=== PATIENT | female | born 1980 | race Caucasian/White ===

== ENCOUNTER → 2021-07-10 09:28 | Outpatient (BNVA) | payer OTHER, SELFPAY | PROVIDERS: Visit Provider Physician Assistant Surgical | DX: Z13.89 Encounter for screening for other disorder (principal) ==

== ENCOUNTER → 2021-07-12 14:53 | Outpatient (BNVA) | payer OTHER, SELFPAY | PROVIDERS: Visit Provider Physician Assistant Surgical | DX: E66.01 Morbid (severe) obesity due to excess calories (principal); Z68.41 Body mass index [BMI] 40.0-44.9, adult | CPT/HCPCS: 99202 ==

== ENCOUNTER 2021-07-15 09:08 | Outpatient (REF) | payer OTHER, SELFPAY ==
--- NOTE | ~2021-07-15 | XR_ITS ---
EXAMINATION: XR CHEST CLINICAL INFORMATION: Obesity COMPARISON: None TECHNIQUE: 2 views of the chest were obtained. FINDINGS: No significant abnormality is noted involving the heart, lungs, mediastinum, bony thorax or soft tissues. XR/XR chest 2V IMPRESSION: Unremarkable examination.
--- NOTE | 2021-07-15 09:22 | ECG_ITS ---
Test Reason : obesity Blood Pressure : / mmHG Vent. Rate : 061 BPM Atrial Rate : 061 BPM P-R Int : 154 ms QRS Dur : 078 ms QT Int : 420 ms P-R-T Axes : 040 024 024 degrees QTc Int : 422 ms Normal sinus rhythm Normal ECG No previous ECGs available Referred By: Rinku Ramires Electronically Signed By:ANSLEY PAIGE MD
[2021-07-15 09:29] LABS: MANUAL DIFF FLAG NO
[2021-07-15 09:55] LABS: Basophils Percent Auto 0.5 % (0-2); Eosinophils Absolute Auto 0.2 X10*3/uL (0.0-0.4); Eosinophils Percent Auto 2.6 % (0-4); Hematocrit 38.8 % (37.0-47.0); Hemoglobin 12.7 g/dl (12.0-16.0); Imm Gran Abs Auto 0.01 X10*3/uL (0.00-0.03); Imm Gran Pct Auto 0.1 % (0.0-0.4); Lymphocytes Absolute Auto 2.8 X10*3/uL (1.2-4.9); Lymphocytes Percent Auto 37.9 % (20-40); Mean Corpuscular HGB Conc 32.7 g/dl (31.0-35.0); Mean Corpuscular Hemoglobin 29.9 pg (27.0-33.0); Mean Corpuscular Volume 91.3 fL (80.0-98.0); Monocytes Absolute Auto 0.5 X10*3/uL (0.1-1.2); Monocytes Percent Auto 6.3 % (2-11); Neutrophils Absolute Auto 3.9 x10*3/uL (2.0-8.3); Neutrophils Percent Auto 52.6 % (45-73); Platelet Count 230 X10*3/uL (160-400); Red Blood Count 4.25 X10*6/uL (4.20-5.50); Red Cell Distribution Width 12.3 % (11.0-16.0); White Blood Count 7.4 X10*3/uL (4.8-10.8)
[2021-07-15 10:08] LABS: Estimated Average Glucose 114 mg/dL; Hemoglobin A1c % 5.6 %
[2021-07-15 10:22] LABS: Alanine Aminotransferase 23 U/L (0-31); Albumin Level 4.3 g/dL (3.5-5.0); Alkaline Phosphatase 67 U/L (39-117); Anion Gap 11 (12-20); Aspartate Amino Transferase 17 U/L (5-31); Bilirubin Total 1.4 mg/dL (0.0-1.0); Blood Urea Nitrogen 15 mg/dL (9-16); C Reactive Protein 0.28 mg/dL (< or = 0.50); Calcium 9.6 mg/dL (8.4-10.2); Carbon Dioxide 27 mmol/L (22-29); Chloride 107 mmol/L (96-108); Cholesterol 201 mg/dL; Estimated Glomerular Filt Rate > 60; Glucose Random 111 mg/dL (60-115); HDL Cholesterol 55 mg/dL; Iron 63 mcg/dL (30-160); LDL Cholesterol Calculated 131 mg/dl; Percent Iron Saturation 20 % (15-50); Potassium 4.1 mmol/L (3.3-5.1); Sodium 141 mmol/L (135-145); Total Iron Binding Capacity 311 mcg/dL (228-428); Triglycerides 76 mg/dL; Unsaturated Iron Binding 248 ug/dL
[2021-07-15 10:48] LABS: Ferritin 132 ng/mL (10-122); Insulin 21 uU/mL (2-29); TSH reflex Free T4 1.39 uIU/mL (0.32-4.0); Vitamin D 25-OH Total 10.9 ng/mL (>30)
[2021-07-15 10:53] LABS: Folate 11.3 ng/mL (> or = 4.0); Vitamin B12 259 pg/mL (200-900)
[2021-07-16 12:42] LABS: Calcium (PTHI) 9.2 mg/dL (8.6-10.2); PTHI 91 pg/mL (16-77)
[2021-07-16 12:57] LABS: H Pylori Breath Test Negative (Negative)
[2021-07-18 00:03] LABS: Zinc 80 mcg/dL (60-130)
[2021-07-19 13:32] LABS: Vitamin B1 10 nmol/L (8-30)
[2021-07-19 18:41] LABS: Vitamin A 57 mcg/dL (38-98)
== END 2021-07-15 09:09 | disposition home or self-care (01) ==
LOC: HO.XRAY 09:08
PROVIDERS: Visit Provider Physician Assistant Surgical
DX: Z01.818 Encounter for other preprocedural examination (principal); E66.01 Morbid (severe) obesity due to excess calories
CPT/HCPCS: 36415; 71046; 80053; 80061; 82306; 82607; 82728; 82746; 83013; 83036; 83525; 83540; 83970; 84425; 84443; 84590; 84630; 85025; 86140; 93005; 99211

== ENCOUNTER → 2021-07-25 11:00 | Outpatient (BNVA) | payer OTHER, SELFPAY | PROVIDERS: Visit Provider Counselor Mental Health | DX: F34.1 Dysthymic disorder (principal); E66.01 Morbid (severe) obesity due to excess calories | CPT/HCPCS: 90791 ==

== ENCOUNTER → 2021-07-29 08:24 | Outpatient (BNVA) | payer OTHER, SELFPAY | PROVIDERS: Visit Provider Dietitian, Registered | DX: E66.01 Morbid (severe) obesity due to excess calories (principal) | CPT/HCPCS: 97802 ==

== ENCOUNTER → 2021-08-09 08:15 | Outpatient (BNVA) | payer OTHER, SELFPAY | PROVIDERS: Visit Provider Surgery | DX: Z13.89 Encounter for screening for other disorder (principal) ==

== ENCOUNTER → 2021-08-28 10:19 | Outpatient (BNVA) | payer OTHER, SELFPAY | PROVIDERS: Referring Provider Physician Assistant Surgical; Visit Provider Dietitian, Registered | DX: E66.01 Morbid (severe) obesity due to excess calories (principal); Z68.41 Body mass index [BMI] 40.0-44.9, adult | CPT/HCPCS: 97803 ==

== ENCOUNTER 2021-09-04 09:33 | Outpatient (REF) | payer OTHER, SELFPAY ==
--- NOTE | ~2021-09-04 | US_ITS ---
EXAMINATION: US COMPLETE ABDOMEN WITH LIVER ELASTOGRAPHY CLINICAL INFORMATION: Morbid obesity. COMPARISON: None. TECHNIQUE: Real-time imaging of the abdominal viscera. Noninvasive ultrasound liver fibrosis assessment is performed using Shravan ElastPQ point quantification shear wave elastography (2D-SWE) with a C5-2 MHz transducer. Multiple elastography samples are obtained. FINDINGS: PANCREAS: Normal. The visualized pancreatic head and body are normal in appearance. The remainder of the pancreas is obscured from visualization by the overlying bowel gas. ABDOMINAL AORTA: The proximal and mid aortic segments are normal in caliber. The distal segment is not seen. INFERIOR VENA CAVA: Visualized portions are normal. LIVER: The liver demonstrates normal size, contour and increased echogenicity. No focal lesion or intrahepatic biliary duct dilatation. The right lobe measures 16.0 cm in length. The left lobe measures 10.7 cm in length. Portal flow is hepatopedal. Shear wave liver elastography median stiffness is 1.74 m/s (reference: normal median stiffness is 1.3 m/s or less). IQR/median stiffness to assess sampling precision is 0.09 (reference: good quality data set is IQR/median stiffness of 0.15 or less). GALLBLADDER: Normal. The gallbladder is physiologically distended without evidence of stones, sludge, polyps, wall thickening or pericholecystic fluid. COMMON BILE DUCT: Normal in caliber measuring 0.3 cm in diameter. RIGHT KIDNEY: Normal. No hydronephrosis. No renal calculi or focal parenchymal lesions. The kidney measures 12.0 cm in maximum dimension. LEFT KIDNEY: Normal. No hydronephrosis. No renal calculi or focal parenchymal lesions. The kidney measures 10.4 cm in maximum dimension. SPLEEN: Normal. The spleen measures 11.6 cm in maximum dimension. FREE FLUID: None. US/US abdomen comp w elastography IMPRESSION: 1. Mild hepatic steatosis without focal lesion. The rest of the abdominal ultrasound is unremarkable. 2. Liver elastography: Median liver stiffness measures 1.74 m/s corresponding to cACLD ( ruled out). REFERENCE: Society of Radiologists in Ultrasound Liver Stiffness Thresholds (2019): LIVER STIFFNESS THRESHOLDS: *Liver Stiffness equal or less than 1.3 m/s: High probability of being normal. *Liver Stiffness less than 1.7 m/s: In the absence of other known clinical signs, rules out compensated advanced chronic liver disease. *Liver Stiffness 1.7-2.1 m/s: Suggestive of compensated advanced chronic liver disease but need further test for confirmation. *Liver Stiffness over 2.1 m/s: Rules in compensated advanced chronic liver disease. *Liver Stiffness over 2.4 m/s: Suggestive of clinically significant portal hypertension. QUALITY OF DATA SET: *IQR/Median value equal or less than 0.15 implies a quality data set. *IQR/Median value over 0.15 implies a poor quality data set. SIGNIFICANT CHANGE FROM PRIOR EXAM: Significant change if liver stiffness measurement is 10% or greater from prior exam. OTHER CONSIDERATIONS: The stage of liver fibrosis may be overestimated in the setting of acute hepatitis, liver inflammation, elevated liver function tests, hepatic vascular congestion, obstructive cholestasis, non-fasting state, and infiltrative diseases such as amyloidosis and lymphoma. In some patients with NAFLD, the liver stiffness thresholds for compensated advanced chronic liver disease may be lower. In causes other than viral hepatitis and NAFLD, liver stiffness thresholds are not well established.
--- NOTE | ~2021-09-04 | FL_ITS ---
EXAMINATION: XR FLUOROSCOPY UPPER GI WITH AIR CLINICAL INFORMATION: Obesity COMPARISON: None TECHNIQUE: Upper GI was performed using thin and thick barium and effervescent granules. FINDINGS: Esophageal motility is normal. No hernia or reflux is seen. The stomach and duodenum are normal. No fold thickening, mass, ulcer or stricture is seen. FLUOROSCOPY TIME: 0.5 minutes DOSE AREA PRODUCT: 5.3 mireles per centimeter squared. 18 saved fluoroscopic images. FL/FL upper GI w air IMPRESSION: Unremarkable examination.
== END 2021-09-04 09:34 | disposition home or self-care (01) ==
LOC: HO.US 09:33
PROVIDERS: Visit Provider Physician Assistant Surgical
DX: E66.01 Morbid (severe) obesity due to excess calories (principal)
CPT/HCPCS: 74246; 76705; 76981

== ENCOUNTER → 2021-10-02 14:29 | Outpatient (BNVA) | payer OTHER, SELFPAY | PROVIDERS: Referring Provider Physician Assistant Surgical; Visit Provider Dietitian, Registered | DX: E66.9 Obesity, unspecified (principal); Z68.38 Body mass index [BMI] 38.0-38.9, adult | CPT/HCPCS: 97803 ==

== ENCOUNTER 2021-11-01 10:32 | Outpatient (REF) | payer OTHER, SELFPAY ==
[2021-11-01 10:56] LABS: MANUAL DIFF FLAG NO
[2021-11-01 11:17] LABS: Basophils Percent Auto 0.7 % (0-2); Eosinophils Absolute Auto 0.1 X10*3/uL (0.0-0.4); Eosinophils Percent Auto 2.3 % (0-4); Hematocrit 39.6 % (37.0-47.0); Hemoglobin 13.2 g/dl (12.0-16.0); Imm Gran Abs Auto 0.01 X10*3/uL (0.00-0.03); Imm Gran Pct Auto 0.2 % (0.0-0.4); Lymphocytes Absolute Auto 2.6 X10*3/uL (1.2-4.9); Mean Corpuscular HGB Conc 33.3 g/dl (31.0-35.0); Mean Corpuscular Hemoglobin 30.4 pg (27.0-33.0); Mean Corpuscular Volume 91.2 fL (80.0-98.0); Monocytes Absolute Auto 0.3 X10*3/uL (0.1-1.2); Monocytes Percent Auto 4.9 % (2-11); Neutrophils Percent Auto 48.9 % (45-73); Platelet Count 252 X10*3/uL (160-400); Red Blood Count 4.34 X10*6/uL (4.20-5.50); Red Cell Distribution Width 12.2 % (11.0-16.0); White Blood Count 6.1 X10*3/uL (4.8-10.8)
[2021-11-01 11:24] LABS: Prothrombin Time 11.7 SEC (10.0-13.1)
[2021-11-01 11:27] LABS: Partial Thromboplastin Time 39.2 SEC (26.0-36.4)
[2021-11-01 11:31] LABS: Estimated Average Glucose 105 mg/dL; Hemoglobin A1c % 5.3 %
[2021-11-01 12:28] LABS: Alanine Aminotransferase 17 U/L (0-31); Albumin Level 4.2 g/dL (3.5-5.0); Alkaline Phosphatase 63 U/L (39-117); Anion Gap 13 (12-20); Aspartate Amino Transferase 18 U/L (5-31); Bilirubin Total 1.8 mg/dL (0.0-1.0); Blood Urea Nitrogen 14 mg/dL (9-16); C Reactive Protein 0.14 mg/dL (< or = 0.50); Carbon Dioxide 24 mmol/L (22-29); Chloride 107 mmol/L (96-108); Cholesterol 182 mg/dL; Estimated Glomerular Filt Rate > 60; Glucose Random 93 mg/dL (60-115); HDL Cholesterol 56 mg/dL; LDL Cholesterol Calculated 107 mg/dl; Potassium 4.2 mmol/L (3.3-5.1); Sodium 140 mmol/L (135-145); Total Protein 6.9 g/dL (6.5-8.0); Triglycerides 95 mg/dL
[2021-11-01 12:40] LABS: TSH reflex Free T4 1.13 uIU/mL (0.32-4.0)
[2021-11-01 13:10] LABS: Insulin 12 uU/mL (2-29)
== END 2021-11-01 10:33 | disposition home or self-care (01) ==
LOC: HO.LAB 10:32
PROVIDERS: PCP Internal Medicine; Visit Provider Surgery
DX: E66.9 Obesity, unspecified (principal); Z68.37 Body mass index [BMI] 37.0-37.9, adult
CPT/HCPCS: 36415; 80053; 80061; 83036; 83525; 84443; 85025; 85610; 85730; 86140

== ENCOUNTER 2021-11-07 10:22 | Inpatient (IN) | payer OTHER, SELFPAY ==
--- NOTE | 2021-11-02 14:54 | MHC.SHP ---
Pre-Procedural Eval Section A Date of Service: 11/02/21 The patient is an INPATIENT: Yes The History & Physical has been completed within 30 days and I have reviewed it.: Yes Section B Chief Complaint: obesity Relevant Family History (Specify if Yes): No Relevant Social History: None Present Medications: None Medical History: No relevant PMH History of Previous Operations: No relevant previous surgery Allergies: Allergies Allergy/AdvReac Type Severity Reaction Status Date / Time No Known Allergies Allergy Verified 08/09/21 14:05 Review of Systems Sugical H&P ROS: Negative: Constitution, Cardiovascular, Respiratory, Neurological, Psychiatric, Hem-Onc, Allergic/Immunologic, Gastrointestinal, Genitourinary, Musculoskeletal, Integumentary, Endocrine and Eyes/Ears/Nose/Throat Exam Surgical H&P Exam: Normal: HEENT, Normal: Heart, Normal: Lungs, Normal: Extremities, Normal: Abdomen, Normal: Skin and Normal: Neurological Plan Diagnosis/Plan: Unchanged I have reviewed the history and physical and performed a pertinent physical examination on my patient. No changes have occurred unless specified.
[2021-11-04 10:28] VITALS: BMI 38.2
--- NOTE | 2021-11-06 09:07 | HO.ANESPROP2 ---
HPI - Anesthesia Eval Consult details Narrative: 41yo F for Gastrectomy Sleeve,EGD,poss diaphragmatic hernia,poss ventral hernia,poss open, PMFSH Active Problems Active Problems: All Active Problems (Updated 11/04/21 @ 10:26 by Kiley Barahona RN) Morbid obesity (Acute) Diabetes (Acute) Dysthymia (Acute) Obesity (Acute) BMI 38.0-38.9,adult (Acute) BMI 37.0-37.9, adult (Acute) Hx of hysterectomy (Acute) Past Medical History Medical History (Updated 11/09/21 @ 00:02 by Ilan Teixeira) Diabetes Former tobacco use Gestational diabetes Family History Family History Maternal Grandfather Colon cancer Brain tumor Diabetes Maternal Aunt Diabetes Surgical History Surgical History Hx of arthroscopic knee surgery Hx of hand surgery Hx of hysterectomy Hx of tubal ligation Social History Social History Household Members Other:: two adult children, one minor child 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 at home: Yes (minor child) Do you presently have visiting nurse or other home services: No Alcohol intake: current Alcohol intake frequency: does not drink Patient Tobacco Use Status: Former Tobacco user Quit Date: 2019 Tobacco use type: Cigarette service: No Current occupational status: employed Meds Allergies Allergy/AdvReac Type Severity Reaction Status Date / Time No Known Allergies Allergy Verified 11/12/21 15:49 Exam Exam Date and Time: November 06, 2021 0907 Height,Weight and Vital Signs: Height 5 ft Weight 88.904 kg Pertinent Lab Results Pertinent Lab Results: Laboratory Tests 11/01/21 10:49 Blood Type O Positive Antibody Screen NEGATIVE Laboratory Tests 11/01/21 11/01/21 10:54 10:54 WBC 6.1 Hgb 13.2 Hct 39.6 Plt Count 252 Sodium 140 Potassium 4.2 Chloride 107 Carbon Dioxide 24 BUN 14 Creatinine 0.74 Narrative Narrative: EKG 07/2021 Vent. Rate : 061 BPM ? ? Atrial Rate : 061 BPM ?? P-R Int : 154 ms? QRS Dur : 078 ms ? ? QT Int : 420 ms ? ? ? P-R-T Axes : 040 024 024 degrees ?? QTc Int : 422 ms ? Normal sinus rhythm Normal ECG No previous ECGs available
[2021-11-06 14:12] LABS: COVID-19 Test Negative (Negative); IDNOW Serial# 16C4AD1C
[2021-11-07] VITALS (9 sets, daily range): BP systolic 109–143; BP diastolic 55–99; PULSE 75–102; RESP 16–19; TEMP 36.4–37.1; O2SAT 97–100
--- NOTE | 2021-11-07 10:26 | PHA.MEDREC ---
Pharmacy Consult ? Medication Reconciliation Pharmacy has REVIEWED the medication reconciliation by Andreas.
[2021-11-07] MEDS: Lactated Ringers 1,000 ML 100 ML IVCONT (11:07)
[2021-11-07] MEDS: Lactated Ringers 1,000 ML 999 ML IV (11:07)
--- NOTE | 2021-11-07 12:29 | HO.ANESPROP2 ---
[facility] Active Problems Active Problems: All Active Problems (Updated 11/04/21 @ 10:26 by Kiley Barahona RN) Morbid obesity (Acute) Diabetes (Acute) Dysthymia (Acute) Obesity (Acute) BMI 38.0-38.9,adult (Acute) BMI 37.0-37.9, adult (Acute) Hx of hysterectomy (Acute) Past Medical History Medical History (Updated 11/04/21 @ 10:26 by Kiley Barahona RN) Former tobacco use Gestational diabetes Family History Family History Maternal Grandfather Colon cancer Brain tumor Diabetes Maternal Aunt Diabetes Family history of problems with anesthesia: No Surgical History Surgical History (Updated 11/04/21 @ 10:26 by Kiley Barahona RN) Hx of arthroscopic knee surgery Hx of hand surgery Hx of tubal ligation History of Problems with Anesthesia: No Social History Social History Household Members Other:: two adult children, one minor child Are you a primary child care lead teacher to a significant other at home: Yes (minor child) Do you presently have visiting nurse or other home services: No Alcohol intake: current Alcohol intake frequency: does not drink Patient Tobacco Use Status: Former Tobacco user Quit Date: 2019 Tobacco use type: Cigarette Use of substances other than those prescribed or required for medical reasons: No Have you been hit, kicked, punched, or otherwise hurt by someone within the past year? If so, by whom?: No Are you DNR?: No Advance Directives: No Advance Directives Information Provided: Yes (brochure given) Advance Directives on File: No Recently lost weight without trying: No Eating poorly because of decreased appetite: No Nutrition Risks: No Nutritional Risk Patient : No FDLMP: 10/31/21 : No Poor oral hygiene: No Meds Allergies Allergy/AdvReac Type Severity Reaction Status Date / Time No Known Allergies Allergy Verified 08/09/21 14:05 Active Medications: Current Medications Lactated Ringer's (Lr) 1,000 mls @ 999 mls/hr IV .Q1H1M DAYANARA Stop: 11/07/21 12:30 Last Admin: 11/07/21 11:07 Dose: 999 mls/hr Lactated Ringer's (Lr) 1,000 mls @ 100 mls/hr IVCONT .Q10H DAYANARA Last Admin: 11/07/21 11:07 Dose: 100 mls/hr Exam Exam Date and Time: November 07, 2021 1229 Height,Weight and Vital Signs: Height 5 ft Weight 88.904 kg Last Vital Signs Temp 98.7 F 11/07/21 10:58 Pulse 102 H 11/07/21 10:58 Resp 19 11/07/21 10:58 BP 143/99 H 11/07/21 10:58 Pulse Ox 97 11/07/21 10:58 O2 Del Method 11/07/21 10:58 Pertinent Lab Results Pertinent Lab Results: Laboratory Tests 11/01/21 11/06/21 10:49 13:39 COVID-19 (COCO) Negative COVID-19 Clin Com See Note Blood Type O Positive Antibody Screen NEGATIVE Airway Mallampati Class: III TM Dist: >3cm Neck ROM: Full Assessment and Plan Assessment Anesthesia Assessment: Anesthesia Plan Discussed and Chart Reviewed Final Anesthetic Review Family History of Problems with Anesthesia: No History of Problems with Anesthesia: No NPO: Yes ASA Class: III Final Preanesthetic Review: No Changes in Pt Med Stat, Meds/Allgs Chart Reviewed, Consent Obtained/Reviewed and Anes Risks/Benef Reviewed Patient Risk: Intermediate Procedure Risk: Intermediate Anesthetic Plan Anesthetic Plan: GA Disposition: Standard PACU
--- NOTE | 2021-11-07 12:56 | PM.OP ---
Brief Operative Note Date of Service: 11/07/21 Pre-op diagnosis: Severe obesity with comorbidities (see below) Post-op diagnosis: same Procedure: INITIAL PATIENT BMI ON PRESENTATION AT OUR OFFICE: 41.2 kg/m2 LAST BMI BEFORE SURGERY: 37 kg/m2 COMORBIDITIES: liver fibrosis ?The patient presented to the Weight Management Program with significant obesity that was negatively impacting the patient's comorbidities as listed above.? The program is a phased program with a special focus on preoperative medical weight management to promote substantial weight loss and prepare the patients for the second phase of the program: bariatric surgery. The patient participated in an intensive weekly lifestyle ?intervention and exercise program during which the patient ?has lost between the initial office visit and the last preoperative visit 15.4lbs, or 7.18% of initial actual body weight. It was deemed appropriate for the patient to now have bariatric surgery. In light of the current Covid-19 pandemic and the well documented strong association of obesity and increased risk of worse outcomes if infected with Covid-19 (REFERENCES:https://pubmed.ncbi.nlm.nih.gov/96556833/,?https://pubmed.ncbi.nlm.nih.gov/31313337/), any delay in undergoing bariatric surgery may lead to the patient's worsening health condition and increased?risk of more severe Covid-19 disease if infected. In addition a recent?study from [facility] published in [facility] on 03/04/2021 ([email or web address]) found that, among patients with obesity, substantial weight loss achieved with surgery was associated with improved outcomes of COVID-19 infection. The findings suggest that obesity can be a modifiable risk factor for the severity of COVID-19 infection. In addition, the patient met the BMI-criteria for bariatric surgery based on the BMI on initial presentation. The patient should not be penalized for achieving such weight loss because ?it is not sustainable long-term without surgical intervention and it was achieved in preparation for bariatric surgery ?under my direction and based on my published research ([email or web address]).[email or web address] and?[email or web address]/pdf) ?that a 10% preoperative weight loss improves long-term weight loss after surgery and reduces perioperative complications.? Insurance carriers such as [facility] have endorsed my recommendations ?and have included in their policies criteria to include a 10% preoperative weight loss requirement. PROCEDURE: Esophago-gastroscopy, laparoscopic repair of incarcerated diaphragmatic hernia, laparoscopic lysis of adhesions, laparoscopic sleeve gastrectomy and laparoscopic gastropexy INDICATIONS: This is a 41 year-old female who was electively scheduled for laparoscopic, possibly open sleeve gastrectomy. The risks and complications of the procedure were discussed with the patient in advance, particularly the possibility of ; pulmonary embolism; staple line leak; bleeding; GERD; cardiac, pulmonary, or renal complications; as well as long-term problems such as insufficient weight loss, vitamin deficiency, strictures, or ulcers. The patient understood all the risks, and was in agreement to proceed with surgery. DESCRIPTION OF PROCEDURE: After informed consent was obtained from the patient, the patient was given preoperative antibiotics, and was transferred to the operating room. After successful induction of general anesthesia, pneumatic compression devices were placed on both lower extremities. An upper endoscopy was performed next. The oropharynx and esophagus appeared to be within normal limits. There was no diaphragmatic hernia present consistent with the findings of the preoperative upper GI. The stomach was entered. Then after all fluid and air were suctioned and the stomach was fully decompressed, the scope was withdrawn and secured in the mid esophagus. The patient was then prepped and draped in the usual sterile manner, and abdominal access was established at the right upper quadrant with the Gasper technique. A 12 mm blunt port was inserted, and the abdomen was insufflated with CO2 to a pressure of 15 mmHg. Under direct visualization, additional ports were placed, specifically two 5 mm Versi-step ports to the left upper quadrant, and a 5 mm Versi-Step port to the right upper quadrant. 1% lidocaine plain was used to infiltrate all port sites as well as all fascia defects. Following that, the patient was placed in a steep reverse Trendelenburg position. An additional 5 mm port was placed to the right flank for the Mediflex retractor that was used to retract the left lobe of the liver. The gastro-esophageal fat pad was opened with the ultrasonic device (Thunderbeat, Olympus) and the anterior esophagus and hiatus were exposed. The angle of His was opened with the ultrasonic device the fundus of the stomach from any diaphragmatic and splenic attachments. I then opened the gastrocolic ligament between the transverse colon and the greater curvature of the stomach with the ultrasonic device to enter the lesser sac and facilitate the ligation of the short gastric vessels. I started at a mid-point along the greater curvature and using the Thunderbeat, all short gastric vessels were divided all the way to the angle of His until the left zaira was completely dissected at its entirety. I then divided the gastro-colic ligament distally to a distance of about 3-4 cm proximal to the pylorus. The stomach was then divided transversely with one Endo DUSTY-45 purple, two DUSTY-45 orange loads and two DUSTY-60 articulating orange loads using the AEON stapler and loads. Every effort was made that the gastric sleeve had a tubular shape and an even caliber throughout. Once the sleeve resection was completed, the staple line of the gastric sleeve was reinforced with Hemoclips. The resected stomach was retrieved without difficulty from the Gasper port. A gastropexy was then performed in order to prevent postoperative GERD and partial gastric volvulus. Several interrupted 2.0 Surgidac sutures were placed between the sleeve's staple line and the previously divided greater omentum and gastro-colic ligament using the Endo-Stitch device. ?An upper endoscopy was performed. There was no narrowing at the GE junction. The scope was easily advanced all the way to the pylorus which was clearly visualized. There was no narrowing anywhere and the sleeve's caliber was even throughout. The sleeve's staple line was inspected and there was no evidence of ischemia, bleeding or dehiscence. At that point the gastroscope was withdrawn from the patient?s mouth while we were decompressing the bowel and the stomach from any remaining air. I looked into the lesser sac to see how the sleeve was situating and it was situating well. There was no bleeding from the staple line, spleen, or short gastric vessels. The Mediflex retractor was removed, and the undersurface of the liver was inspected and there was no bleeding. The patient was placed in supine position. I closed the fascial defect of the 12 mm port site with a figure of eight #1 Polysorb suture. Then 40cc of Ropivacaine plain with 10 mg of Dexamethasone were used to infiltrate the fascial closure as well as all skin incisions. A total of ml of Zynrelef was applied in the Gasper wound. At this point, the abdomen was deflated, all ports were removed under direct vision, and no bleeding was noted from any of the port sites. The skin incisions were irrigated with saline and were closed with 4-0 absorbable monofilament sutures. Steri-Strips and OpSites were used to cover all incisions. The patient was extubated and was transferred in stable condition to the recovery room for further care. I was present and performed all riggs parts of the procedure. Mr. Ramires was the patient care nursing assistant. There were no residents to assist with this case. Je Gonzalez MD, PhD, FACS Surgeon: Malachi Gonzalez MD Anesthesia: GETA, local and other (TAP block and 7ml of Zynrelef) Was an Supervisor Sanding used for this Procedure?: No Supervisor Sanding: Rinku Ramires Estimated blood loss (mL): 10 IV fluids (mL): 3,000 Urine output (mL): 0 (No Steele to record) Pathology: other (Stomach) Condition: stable Disposition: PACU
--- NOTE | 2021-11-07 12:58 | PM.PNGS ---
Subjective Subjective Date of Service: 11/07/21 Interval history: Feels well. Mild incisional pain. She is tolerating phase 1 bariatric diet Physical Exam Vital Signs: Vital Signs: Last Vital Signs Temp 98.7 F 11/07/21 10:58 Pulse 102 H 11/07/21 10:58 Resp 19 11/07/21 10:58 BP 143/99 H 11/07/21 10:58 Pulse Ox 97 11/07/21 10:58 O2 Del Method 11/07/21 10:58 BMI result Body Mass Index 38.2 GI: Inspection: Yes normal to inspection, Yes incision (clean, dry and intact) and Yes obesity Extrem: Right lower extremity: normal to inspection (no calf tenderness ) Left lower extremity: normal to inspection (no calf tenderness) Objective Data Active Medications Hydromorphone HCl (Hydromorphone Hcl 0.5 Mg/0.5 Ml Syringe) 0.5 mg IVPUSH Q5M PRN; Protocol PRN Reason: Pain, Severe (Pain Scale 7-10) Lactated Ringer's (Lr) 1,000 mls @ 100 mls/hr IVCONT .Q10H DAYANARA Last Admin: 11/07/21 11:07 Dose: 100 mls/hr Documented By: JOHN Promethazine HCl 12.5 mg/ (Sodium Chloride) 50.5 mls @ 202 mls/hr IV ONCE PRN PRN Reason: Nausea and Vomiting Ondansetron HCl (Ondansetron Hcl 4 Mg/2 Ml Vial) 4 mg IVPUSH ONCE PRN PRN Reason: Nausea and Vomiting Labs CBC & Chem 7: 11/07/21 15:59 11/07/21 15:59 Labs: Laboratory Results - last 24 hr 11/06/21 13:39 COVID-19 (COCO) Negative COVID-19 Clin Com See Note Progress Note: A&P Assessment and plan (1) Obesity: Status: Acute Assessment and Plan: s/p laparoscopic sleeve gastrectomy and gastropexy Doing well Will check am labs and if OK the patient will be discharged home (2) BMI 37.0-37.9, adult: Status: Acute (3) Liver fibrosis: Status: Acute (4) S/P laparoscopic sleeve gastrectomy: Status: Acute Time Spent With Patient Time: Total time spent is greater than 50% in coordination of care (as documented) at patient's floor/unit and/or counseling patient: Quality Stroke Does the patient have a stroke diagnosis?: No VTE Prior VTE?: No VTE Risk Level:: Surgical - moderate VTE Device Contraindication: N/A - Device Ordered VTE Drug Contraindication: Treatment Not Indicated
--- NOTE | 2021-11-07 15:31 | PM.DS ---
DS: Providers Provider Date of Service: 11/08/21 Date of admission: 11/07/21 10:22 Primary care physician: John Joyce MD DS: Diagnosis Discharge Diagnosis (1) Obesity: Status: Acute (2) BMI 37.0-37.9, adult: Status: Acute (3) Liver fibrosis: Status: Acute DS: Summary Hospital Course Hospital Course: ADMITTING DIAGNOSIS: obesity ? DISCHARGE DIAGNOSIS: same, s/p laparoscopic sleeve gastrectomy ? PAST SURGICAL HISTORY: hysterectomy, hand surgery ? PROCEDURE: upper endoscopy, laparoscopic sleeve gastrectomy ? DISCHARGE SUMMARY: ? History of Present Illness: ? The patient is a?41 year-old woman with a BMI of?41.1 kg/m2 and associated co-morbidities as described above. The patient had extensive work-up,lost?15.4 lbs preoperatively and was electively scheduled for laparoscopic, possible open sleeve gastrectomy and gastropexy. Risks and complications of the surgery were discussed with the patient in advance, particularly the possibility of , pulmonary embolism, anastomotic leak, bleeding, bowel injury, GERD, cardiac, renal or pulmonary complications. The patient understood all the risks and was in agreement with the surgical plan. ? Hospital Course: ? The patient underwent an uneventful laparoscopic sleeve gastrectomy with gastropexy on the day of admission. Postoperatively, the patient was transferred to the surgical floor. The patient received IV Acetaminophen and IV dilaudid for pain control. Patient was started on bariatric phase 1 diet POD #0. On postoperative day one, the patient was feeling well without nausea, vomiting, fevers, or tachycardia. The patient had some mild incisional pain and the abdomen was soft. ? On the morning of postoperative day one, the patient was continued on 1 ounce of water or ice every half hour. During the day, the patient did fairly well, having some incisional pain, but able to ambulate adequately and to tolerate liquids well. ? Since the patient is doing well, we decided that the patient was ready to be discharged. The patient was given instructions to follow-up with me next week and to call my office for any fever over 101, persistent abdominal pain, nausea, vomiting, GERD, symptoms of DVT such as calf tenderness, or leg swelling, or pulmonary embolism such as chest pain or shortness of breath. The patient was also instructed to drink 40-60 ounces of liquids per day using the 1-ounce cups. The patient had been given prescriptions for Tylenol for pain, Zofran prn for nausea, and pantoprazole and carafate previously. The patient was encouraged to ambulate and use the incentive spirometer. The patient was allowed to shower, but no baths, and encouraged to stay active at home. All of these instructions were given to the patient personally. All questions were answered and the patient understood all instructions, the instructions were also given to the patient in print. Time Spent with Patient Time attestation: Total time spent providing and/or coordinating discharge services: Discharge coordination time: Less than 30 minutes Quality: Safe Use of Opioids Does Pt have an Active Cancer Diagnosis on the Problem List?: No Quality: Stroke Does the patient have a stroke diagnosis?: No Physical Exam Vital Signs: Vital Signs: Last Vital Signs Temp 98.7 F 11/07/21 10:58 Pulse 102 H 11/07/21 10:58 Resp 19 11/07/21 10:58 BP 143/99 H 11/07/21 10:58 Pulse Ox 97 11/07/21 10:58 O2 Del Method 11/07/21 10:58 BMI result Body Mass Index 38.2 DS: Data Data Completed and Pending Pending studies at discharge: Pending at discharge 11/07/21 14:59 Surgical [PTH] Routine Discharge Plan Discharge Patient Disposition: Home, Self-Care Discharge Diagnosis: s/p laparoscopic sleeve gastrectomy Referrals: John Joyce MD [Primary Care Provider] - 1 Week Discharge Medications: Continued pantoprazole 40 mg tablet,delayed release (DR/EC) 40 mg PO DAILY Qty: 30 2RF sucralfate 100 mg/mL suspension 10 ml PO BID Qty: 400 2RF Rx Instructions: post op meds ondansetron HCl 4 mg tablet 4 mg PO Q12H Qty: 20 0RF Rx Instructions: post op meds Discontinued cholecalciferol (vitamin D3) 125 mcg (5,000 unit) capsule 125 mcg PO DAILY Qty: 30 3RF mecobalamin (vitamin B12) 1,000 mcg tablet,disintegrating 1,000 mcg sublingual DAILY Qty: 30 2RF Rx Instructions: place tablet under tongue and allow to dissolve for at least30 secs before swallowing Activity on Discharge: No heavy lifting Stand Alone Forms: Patient Portal Discharge page Care Plan Goals: weight loss Health Concerns: obesity Plan of Treatment: No tub baths, sex or returning to work until discussed at first post op appointment. No exercise, alcohol, tobacco or illegal drug use. Continue to use incentive spirometer hourly while awake. Walk in home for 5- 10 minutes every 2 hours during the first week. Follow all instructions in the bariatric handbook and call with any questions.Discharge Instructions 1. Please call your doctor or come back to the emergency room should any new symptoms arise. 2. You will receive a courtesy call from [facility] 24-48 hours after discharge. 3. Activity: abstain from alcohol, practice limited stair climbing, no bending, no driving, no exercise, no illicit substances, no lifting, no sex, no tub bath, no work. 4. Diet: continue as discussed with Dr. Gonzalez. 5. Dressing Change/Wound Care: Your incision is covered by clear bandages and guaze underneath. If the area is tender, you may apply an ice pack for short intervals (no more than 20 minutes on, followed by at least 20 minutes off). Do not apply heat. Do not use creams, lotions, or topical antibiotics unless instructed to do so by your surgeon. These can cause infection or allergic reaction. 6. Call your doctor if: - Your temperature exceeds 101.5 F - You experience excessive pain or swelling - You have an unexpected reaction to medication - You have excessive bleeding - You experience continued vomiting/nausea - Your incision begins to separate - Your incision shows signs of infection such as increased redness, swelling, excessive pain, heat, or drainage (light blood or clear fluid is normal) 7. General instructions: No lifting greater than 5 lbs for the next 4 weeks[address] driving within 24 hours of taking narcotic pain medications. If you do not move your bowels in the next 2 days, please take milk of magnesia over the counter. Please follow the post op diet and do not advance your diet until you are seen in the office in about 2 weeks. Please walk around your home every hour or two to prevent blood clots from forming in your legs. You do not need to wake from sleeping to walk. Please sleep in a bed or couch to prevent kinking at the hips and knees. Please take your incentive spirometer (your lung dog catcher) home with you and use it for the next few days to prevent pneumonias. You may shower, no hot tubs, baths or swimming pools. Please call the office with any questions or concerns such as increasing abdominal pain, fever, chills, shortness of breath, chest pain, leg pain or swelling, or redness or drainage from your incisions. Please stay on stage 3 diet which includes sugar free clear liquids such as ice pops and jello and broth and crystal light. Avoid all carbonation. Please drink 3 protein shakes with at least 25-30 grams of protein daily or 3 of the Celebrate 4:1 shakes which can be purchased in our office. The Celebrate shakes have all of the bariatric vitamins you need if you consume these shakes. If you are drinking other protein shakes, you will need to purchase the Celebrate multivitamins and calcium that we provide in the office (they will provide all the vitamins you need). Please make sure you are consuming at least 40-60 ounces of water in addition to your 3 protein shakes daily. Do not hesitate to contact the office with any questions at . The patient's medical history has been reviewed and they are considered low risk for post op DVT and therefore DVT prophylaxis is not considered necessary. Travel after surgery was reviewed. The patient has not disclosed any travel plans during the first 30 days after surgery and they have been advised that within the first 30 days after surgery any bus, plane, train or car travel over 2 hours in duration is contraindicated due to the possibility of developing blood clots from immobility. Any travel, needs to include periods of ambulation of 10 minutes in duration every 2 hours.? The patient was instructed to discuss any plans for travel during this period with their bariatric surgeon. Assessment: stable, s/p laparoscopic sleeve gastrectomy
[2021-11-07] MEDS: Lactated Ringers 1,000 ML 125 ML IVCONT ×2 (15:45→22:46)
[2021-11-07 16:07] LABS: Hematocrit 37.6 % (37.0-47.0); Hemoglobin 12.7 g/dl (12.0-16.0)
[2021-11-07 16:18] LABS: Anion Gap 19 (12-20); Blood Urea Nitrogen 9 mg/dL (9-16); Calcium 8.2 mg/dL (8.4-10.2); Carbon Dioxide 18 mmol/L (22-29); Chloride 104 mmol/L (96-108); Creatinine Clr Calc Pharmacy 90.3; Estimated Glomerular Filt Rate > 60; Glucose Random 77 mg/dL (60-115); Potassium 4.1 mmol/L (3.3-5.1); Sodium 137 mmol/L (135-145)
[2021-11-07] MEDS: ceFAZolin Sodium/Dextrose,Iso 2 GM/50 ML PIGGYBACK IV (18:27)
[2021-11-07] MEDS: Famotidine/PF 20 MG/2 ML VIAL IVPUSH (19:25)
[2021-11-07] MEDS: 0.9 % Sodium Chloride Flush 3 ML SYRINGE IVFLUSH (19:38)
[2021-11-08] MEDS: ondansetron HCL 4 MG/2 ML VIAL IVPUSH ×2 (01:03→10:23)
[2021-11-08 03:49] VITALS: BP 130/65; PULSE 76; RESP 18; TEMP 36.7; O2SAT 98
[2021-11-08 06:09] LABS: MANUAL DIFF FLAG NO
[2021-11-08] MEDS: Lactated Ringers 1,000 ML 125 ML IVCONT (06:14)
[2021-11-08 06:16] LABS: Hematocrit 38.6 % (37.0-47.0); Hemoglobin 13.1 g/dl (12.0-16.0); Imm Gran Abs Auto 0.04 X10*3/uL (0.00-0.03); Imm Gran Pct Auto 0.4 % (0.0-0.4); Lymphocytes Absolute Auto 1.2 X10*3/uL (1.2-4.9); Lymphocytes Percent Auto 13.6 % (20-40); Mean Corpuscular HGB Conc 33.9 g/dl (31.0-35.0); Mean Corpuscular Hemoglobin 30.3 pg (27.0-33.0); Mean Corpuscular Volume 89.4 fL (80.0-98.0); Mean Platelet Volume 10.7 fL (9.4-12.3); Monocytes Absolute Auto 0.3 X10*3/uL (0.1-1.2); Monocytes Percent Auto 3.1 % (2-11); Neutrophils Absolute Auto 7.4 x10*3/uL (2.0-8.3); Neutrophils Percent Auto 82.9 % (45-73); Platelet Count 240 X10*3/uL (160-400); Red Blood Count 4.32 X10*6/uL (4.20-5.50); Red Cell Distribution Width 11.9 % (11.0-16.0)
[2021-11-08 07:11] LABS: Anion Gap 20 (12-20); Blood Urea Nitrogen 6 mg/dL (9-16); Calcium 8.8 mg/dL (8.4-10.2); Carbon Dioxide 18 mmol/L (22-29); Chloride 103 mmol/L (96-108); Creatinine Clr Calc Pharmacy 94.9; Estimated Glomerular Filt Rate > 60; Glucose Random 103 mg/dL (60-115); Potassium 4.5 mmol/L (3.3-5.1); Sodium 136 mmol/L (135-145)
[2021-11-08 07:39] VITALS: BP 110/64; PULSE 66; RESP 18; TEMP 36.5; O2SAT 100
--- NOTE | 2021-11-08 08:14 | MHC.CM.PN ---
PATIENT LIVES WITH FAMILY INDEPENDENT AT HOME AND COMMUNITY. EMPLOYED NO DME OR HOME SERVICES HCP- EDUCATED, DECLINED AT THIS TIME PCP: ERICA DANIEL PATIENT WILL ARRANGE TRANSPORTATION D/C PLAN: HOME SELF-CARE
--- NOTE | 2021-11-08 08:44 | HO.POSTANES ---
Post Anesthesia Evaluation Post Anesthesia Evaluation Vital Signs: Vital Signs Temp Pulse Resp BP Pulse Ox O2 Del Method 11/08/21 07:39 97.7 F 66 18 110/64 100 Room Air 11/08/21 03:49 98.1 F 76 18 130/65 98 Room Air 11/07/21 23:48 98.1 F 75 18 114/62 97 Room Air Anesthesia: General Endotracheal-GETA Mental Status: Awake Pain Control: Satisfactory Nausea/Vomiting: None Hydration: Adequate Anesthesia-Related Issues: No Anes. Related Issues
--- NOTE | 2021-11-08 10:09 | MHC.CM.PN ---
PATIENT IS MEDICALLY CLEARED FOR DISCHARGE TODAY; DISCHARGE DISPOSITION IS HOME SELF-CARE. PATIENT TO ARRANGE TRANSPORTATION.
[2021-11-08] MEDS: Famotidine/PF 20 MG/2 ML VIAL IVPUSH (10:23)
== END 2021-11-08 14:03 | disposition home or self-care (01) | DRG 403 ==
LOC: HO.SSSA 15:34 → HO.S3 15:56
PROVIDERS: Physician Assistant Surgical; Admitting Provider Surgery; PCP Internal Medicine; Visit Provider Surgery
PROC: 0DB64Z3 Excision of Stomach, Percutaneous Endoscopic Approach, Vertical (ICD-10-PCS; CPT 43845; principal; 2021-11-07 13:00)
DX: E66.01 Morbid (severe) obesity due to excess calories (principal); K74.00 Hepatic fibrosis, unspecified; E11.9 Type 2 diabetes mellitus without complications; Z20.822 Contact with and (suspected) exposure to COVID-19; Z90.710 Acquired absence of both cervix and uterus; Z98.51 Tubal ligation status; Z87.891 Personal history of nicotine dependence; Z79.899 Other long term (current) drug therapy
CPT/HCPCS: 36415; 80048; 85014; 85018; 85025; 86850; 86900; 86901; 87635; 88307; 88342; A4649; C9088; J0131; J0690; J1100; J1170; J2250; J2405; J2795; J3010

== ENCOUNTER → 2021-11-27 11:33 | Outpatient (BNVA) | payer OTHER, SELFPAY | PROVIDERS: PCP Internal Medicine; Referring Provider Internal Medicine; Visit Provider Physician Assistant Surgical | DX: E66.9 Obesity, unspecified (principal); Z98.84 Bariatric surgery status; Z68.33 Body mass index [BMI] 33.0-33.9, adult | CPT/HCPCS: 99212 ==

== ENCOUNTER → 2022-01-28 08:57 | Outpatient (BNVA) | payer OTHER, SELFPAY | PROVIDERS: PCP Internal Medicine; Visit Provider Physician Assistant Surgical | DX: E66.9 Obesity, unspecified (principal); Z98.84 Bariatric surgery status | CPT/HCPCS: 99212 ==

== ENCOUNTER → 2022-03-24 11:35 | Outpatient (BNVA) | payer OTHER, SELFPAY | PROVIDERS: PCP Internal Medicine; Visit Provider Physician Assistant Surgical | DX: E66.3 Overweight (principal); E11.9 Type 2 diabetes mellitus without complications; Z68.28 Body mass index [BMI] 28.0-28.9, adult; Z98.84 Bariatric surgery status | CPT/HCPCS: 99212 ==

== ENCOUNTER → 2022-05-05 14:44 | Outpatient (BNVA) | payer OTHER, SELFPAY | PROVIDERS: PCP Internal Medicine; Visit Provider Physician Assistant Surgical | DX: E66.3 Overweight (principal); L98.7 Excessive and redundant skin and subcutaneous tissue; E11.9 Type 2 diabetes mellitus without complications; Z87.891 Personal history of nicotine dependence; Z68.26 Body mass index [BMI] 26.0-26.9, adult; Z86.32 Personal history of gestational diabetes; Z98.84 Bariatric surgery status | CPT/HCPCS: 99212 ==

== ENCOUNTER → 2022-07-22 09:57 | Outpatient (BNVA) | payer OTHER, SELFPAY | PROVIDERS: PCP Internal Medicine; Visit Provider Physician Assistant Surgical | DX: L98.7 Excessive and redundant skin and subcutaneous tissue (principal); Z98.84 Bariatric surgery status | CPT/HCPCS: 99212 ==

== ENCOUNTER → 2022-08-26 09:58 | Outpatient (BNVA) | payer OTHER, SELFPAY | PROVIDERS: PCP Internal Medicine; Visit Provider Dietitian, Registered | DX: Z98.84 Bariatric surgery status (principal); E11.9 Type 2 diabetes mellitus without complications; Z71.3 Dietary counseling and surveillance | CPT/HCPCS: 97803 ==

== ENCOUNTER 2022-11-11 12:21 | Outpatient (AMB) | payer OTHER, SELFPAY ==
--- NOTE | 2022-11-11 12:26 | A.OFFVIS_ITS ---
Intake VS Expanded 11/11/22 12:31 Height 5 ft Weight 125 lb 3.2 oz BMI 24.4 BP 108/58 L Blood Pressure Location Rt brachial Blood Pressure Position Sitting Pulse 65 Pulse Source Pulse Oximeter Temp 97.1 F Temperature Source Temporal Artery Scan Pulse Oximetry 96 Oxygen Delivery Method Room Air Body Fat 31.6 Body Fat Percentage 25.2 Free Fat Mass 93.4 Muscle Mass 88.6 Visceral Mass 4.0 Water Mass 66.8 BMR 1,264 Intake Visit Reasons: (OV) PO LSG 11/07/21 Allergies No Known Allergies Allergy (Verified 11/11/22 12:30) Medication List - Last Reconciled 11/11/22 by MELITA Levine biotin 5 mg PO DAILY clotrimazole 1% 1 appl topical BID mecobalamin (vitamin B12) 1,000 mcg PO DAILY multivitamin 1 tab PO DAILY ondansetron 4 mg PO Q8H PRN HPI HPI Comments History of Present Illness Details This?is a?42?yo female who is s/p LSG 11/07/2021. Presents for 1 year post op visit. Weight at last visit on 08/26/2022 was 127 pounds with a BMI of 24.8, weight today is 125.2 pounds, representing a 1.8 pound weight loss with a BMI today of 24.5.? No complaints of nausea, emesis, abdominal pain or reflux, or constipation. Present meal plan includes: getting adequate hydration 1 egg for breakfast will make chicken and vegetables, eat over the course of the day Exercise: has a physical job, also has a gym membership Continues to experience itchy rashes in excess skin of abdomen- painful, moisture collects in skin fold, has an unpleasant odor. Has to wear compressive pants to hold skin in place to provide support and avoid discomfort. Has tried clotrimazole ointment to help rashes but this did not resolve the problem. Feels limited in range of motion which makes her job more difficult (she has a physical job, driving and delivering boxes). She has started to experience lower back pain due to the weight of the skin. Pt has also started to experience problems of excess skin of arms. It limits her ability to do her job comfortably as the skin will get pinched while she is lifting heavy boxes. Skin of the arms that makes contact with the torso also becomes very itchy and irritated. Topical cream has not improved these rashes. Did the patient ever have any of these conditions and are they resolved or still being treated? GERD: occasional, with triggers- takes ondansetron JAVI:? never DM:? never HTN:? never Hyperlipidemia:?resolved Post op complications:? n/a? PFSH Medical History (Updated 05/05/22 @ 15:10 by MELITA Levine) Diabetes Former tobacco use Gestational diabetes Surgical History Hx of arthroscopic knee surgery Hx of hand surgery Hx of hysterectomy Hx of tubal ligation Family History Maternal Grandfather Colon cancer Brain tumor Diabetes Maternal Aunt Diabetes Social History Household Members Other:: two adult children, one minor child Are you a primary respiratory care practitioner to a significant other at home: Yes (minor child) Do you presently have visiting nurse or other home services: No Alcohol intake: current Alcohol intake frequency: does not drink Patient Tobacco Use Status: Former Tobacco user Quit Date: 2019 Tobacco use type: Cigarette service: No Current occupational status: employed Physical Exam Vital Signs: Last Vital Signs Temp 97.1 F 11/11/22 12:31 Pulse 65 11/11/22 12:31 BP 108/58 L 11/11/22 12:31 Pulse Ox 96 11/11/22 12:31 Oxygen Delivery Method Room Air 11/11/22 12:31 BMI result Body Mass Index 24.4 Const General: cooperative, comfortable and no acute distress Orientation/consciousness: patient oriented x3 GI Other: soft, nontender, nondistended, incisions well healed, no hernia, no masses Grade II pannus Skin Other: excess skin of upper arms 7cm length on R, 8cm on L Neuro General: patient oriented x3 Assessment & Plan Assessment & Plan (1) Excess skin: Code(s): L98.7 - Excessive and redundant skin and subcutaneous tissue (2) S/P laparoscopic sleeve gastrectomy: Code(s): Z98.84 - Bariatric surgery status Plan Pt has done well with maintaining a healthy BMI one year postop. She is experiencing ongoing issues of excess skin of abdomen, resulting in frequent painful rashes refractory to topical Rx treatment. She is also limited due to pain and discomfort in range of motion and daily activities including her job and including exercise, which is necessary to maintain her excellent weight loss. She would benefit from definitive treatment of bilateral brachioplasty. In addition, pt is experiencing ongoing issues of excess skin of upper arms, resulting in frequent painful rashes/chafing refractory to topical Rx treatment. She is also limited due to pain and discomfort in range of motion and daily activities including her job and including exercise, which is necessary to maintain her excellent weight loss. She would benefit from definitive treatment of bilateral brachioplasty. Will submit to insurance today. Also reminded pt to have labs drawn. Patient is at healthy BMI but with ongoing issues of excess skin of abdomen and upper arms, and is not considered stable at this time. I spent a total of [] minutes reviewing/updating records, examining the patient and counseling the patient on weight management as detailed above. Coding Level of Care Code Est Pt Level 4 (41194) Diagnoses Excess skin L98.7 S/P laparoscopic sleeve gastrectomy Z98.84
[2022-11-11 12:31] VITALS: BP 108/58; PULSE 65; TEMP 36.2; O2SAT 96; BMI 24.4
== END 2022-11-11 13:14 | disposition home or self-care (01) ==
PROVIDERS: PCP Internal Medicine; Visit Provider Physician Assistant Surgical
DX: L98.7 Excessive and redundant skin and subcutaneous tissue (principal); Z98.84 Bariatric surgery status
CPT/HCPCS: 99214

== ENCOUNTER → 2022-11-11 12:21 | Outpatient (BNVA) | payer OTHER, SELFPAY | PROVIDERS: PCP Internal Medicine; Visit Provider Physician Assistant Surgical | DX: K91.2 Postsurgical malabsorption, not elsewhere classified (principal); L98.7 Excessive and redundant skin and subcutaneous tissue; Z98.84 Bariatric surgery status | CPT/HCPCS: 99212 ==

== ENCOUNTER 2022-11-26 08:17 | Outpatient (REF) | payer OTHER, SELFPAY ==
[2022-11-26 08:35] LABS: MANUAL DIFF FLAG NO
[2022-11-26 08:50] LABS: Basophils Absolute Auto 0.1 X10*3/uL (0.0-0.2); Basophils Percent Auto 0.9 % (0-2); Eosinophils Absolute Auto 0.2 X10*3/uL (0.0-0.4); Eosinophils Percent Auto 2.6 % (0-4); Hematocrit 39.9 % (37.0-47.0); Hemoglobin 13.1 g/dl (12.0-16.0); Lymphocytes Absolute Auto 2.4 X10*3/uL (1.2-4.9); Mean Corpuscular HGB Conc 32.8 g/dl (31.0-35.0); Mean Corpuscular Hemoglobin 30.5 pg (27.0-33.0); Mean Corpuscular Volume 92.8 fL (80.0-98.0); Mean Platelet Volume 9.9 fL (9.4-12.3); Monocytes Absolute Auto 0.3 X10*3/uL (0.1-1.2); Monocytes Percent Auto 5.2 % (2-11); Neutrophils Absolute Auto 2.9 x10*3/uL (2.0-8.3); Neutrophils Percent Auto 50.3 % (45-73); Platelet Count 206 X10*3/uL (160-400); Red Cell Distribution Width 12.1 % (11.0-16.0); White Blood Count 5.8 X10*3/uL (4.8-10.8)
[2022-11-26 08:56] LABS: Estimated Average Glucose 91 mg/dL; Hemoglobin A1c % 4.8 % (<6.0)
[2022-11-26 10:22] LABS: Alanine Aminotransferase 7 U/L (0-31); Albumin Level 4.1 g/dL (3.5-5.0); Alkaline Phosphatase 58 U/L (39-117); Anion Gap 8 (12-20); Aspartate Amino Transferase 12 U/L (5-31); Bilirubin Total 1.9 mg/dL (0.0-1.0); Blood Urea Nitrogen 17 mg/dL (9-16); C Reactive Protein < 0.04 mg/dL (< or = 0.50); Calcium 9.2 mg/dL (8.4-10.2); Carbon Dioxide 25 mmol/L (22-29); Chloride 110 mmol/L (96-108); Cholesterol 210 mg/dL (<200); Estimated Glomerular Filt Rate > 60; Glucose Random 87 mg/dL (60-115); HDL Cholesterol 75 mg/dL (>40); Iron 116 mcg/dL (30-160); LDL Cholesterol Calculated 124 mg/dL (<100); Percent Iron Saturation 45 % (15-50); Potassium 4.3 mmol/L (3.3-5.1); Sodium 139 mmol/L (135-145); Total Iron Binding Capacity 257 mcg/dL (228-428); Total Protein 6.9 g/dL (6.5-8.0); Triglycerides 57 mg/dL (<150); Unsaturated Iron Binding 141 ug/dL
[2022-11-26 10:37] LABS: Folate 9.8 ng/mL (> or = 4.0); Vitamin B12 580 pg/mL (200-900)
[2022-11-26 10:48] LABS: Ferritin 84 ng/mL (10-250); Insulin 4 uU/mL (2-29); TSH reflex Free T4 1.52 uIU/mL (0.32-4.0); Vitamin D 25-OH Total 24.8 ng/mL (>30)
[2022-11-27 12:04] LABS: Calcium (PTHI) 8.9 mg/dL (8.6-10.2); PTHI 70 pg/mL (16-77)
[2022-11-29 04:34] LABS: Zinc 90 mcg/dL (60-130)
[2022-11-30 12:02] LABS: Vitamin B1 34 nmol/L (8-30)
[2022-12-02 17:53] LABS: Vitamin A 56 mcg/dL (38-98)
== END 2022-11-26 08:18 | disposition home or self-care (01) ==
LOC: HO.LAB 08:17
PROVIDERS: PCP Internal Medicine; Visit Provider Physician Assistant Surgical
DX: Z98.84 Bariatric surgery status (principal)
CPT/HCPCS: 36415; 80053; 80061; 82306; 82607; 82728; 82746; 83036; 83525; 83540; 83970; 84425; 84443; 84590; 84630; 85025; 86140

== ENCOUNTER → 2022-12-18 08:40 | Outpatient (BNVA) | payer OTHER, SELFPAY | PROVIDERS: PCP Internal Medicine; Visit Provider Surgery ==

== ENCOUNTER 2022-12-18 09:20 | Outpatient (AMB) | payer OTHER, SELFPAY ==
--- NOTE | 2022-12-18 11:41 | MHC.OFFVISWM ---
Intake VS Expanded 12/18/22 11:43 Height 5 ft Weight 125 lb BMI 24.4 Intake Visit Reasons: TV Pre Op Pannic/Brachio 01/08/23 Allergies No Known Allergies Allergy (Verified 12/18/22 11:41) Medication List - Last Reconciled 12/18/22 by Malachi Gonzalez MD biotin 5 mg PO DAILY cholecalciferol (vitamin D3) 50 mcg PO DAILY clotrimazole 1% 1 appl topical BID mecobalamin (vitamin B12) 1,000 mcg PO DAILY multivitamin 1 tab PO DAILY ondansetron 4 mg PO Q8H PRN HPI TV Pre Op Pannic/Brachio 01/08/23 HPI Details Start time: 11.38am, End time: 12.08pm ?I spent 25 minutes speaking with the patient on the phone plus an additional 5 minutes reviewing and updating records for a total of 30 minutes HPI Comments History of Present Illness Details Overall weight loss: 86.4lbs, or 40.87% TBWL Is doing one egg for breakfast, a chicken wrap for lunch, and a salad with chicken for dinner snacks: fruits and chips Exercise: none PFSH Medical History (Updated 12/18/22 @ 11:57 by Malachi Gonzalez MD) Postgastrectomy malabsorption Former tobacco use Gestational diabetes Diabetes Surgical History Hx of arthroscopic knee surgery Hx of tubal ligation Hx of hysterectomy Hx of hand surgery Family History Maternal Grandfather Colon cancer Brain tumor Diabetes Maternal Aunt Diabetes Social History Household Members Other:: two adult children, one minor child Are you a primary date night caregiver to a significant other at home: Yes (minor child) Do you presently have visiting nurse or other home services: No Alcohol intake: current Alcohol intake frequency: does not drink Patient Tobacco Use Status: Former Tobacco user Quit Date: 2019 Tobacco use type: Cigarette service: No Current occupational status: employed Physical Exam Vital Signs: BMI result Body Mass Index 24.4 Assessment & Plan Assessment & Plan (1) Excess skin: Code(s): L98.7 - Excessive and redundant skin and subcutaneous tissue Plan: 1. Plan for bilateral brachioplasty and panniculectomy. Risks of infection, bleeding, asymmetry, wound dehiscence and blood clots were discussed with the patient. 2. You will have a drain the abdomen that may stay a few weeks before it may be removed 3. You will need to be doing sponge baths the first 1-2 weeks. No showers. You need to have help at home to get you up and limit your activities as much as possible for at least the 4-6 weeks after surgery 4. We will arrange for a visiting nurse to come at home to help you with dressing changes and send me pictures of the procedures. We will send at your home supplies for the dressing changes. 5. Change nutritional plan to TWO CELEBRATE REBUILD protein shakes at 6am-8am and 9am-11am, two CELEBRATE protein bars at 12m-2pm and 3pm-5pm and one meal at 6pm (6 forks of protein and 6 forks of salad or vegetables). If needed, do another CELEBRATE protein bar at 8pm-10pm if you feel hungry. This will improve weight loss and healing after surgery. 6. Continue all vitamins 7. Do blood work not fasting any day between Thursday12/22/22 and Thursday12/27/22 and curing pickling packer the antibiotic prescription from your pharmacy 8. Risks and complications were discussed the possibility of bleeding that may require transfusion, loss of the umbilicus, wound dehiscence or infection, dog ears , flap asymmetry. We also discussed the importance of strict avoidance of weight lifting. 9. Avoid aspirin, motrin, ibuprofen, Aleve, Advil, Naproxyn. Only Tylenol is OK 10. Start the constipation (Colace or bisacodyl) pill now and take one per day (2) Postgastrectomy malabsorption: Code(s): K91.2 - Postsurgical malabsorption, not elsewhere classified; Z90.3 - Acquired absence of stomach [part of] Orders: Orders Prothrombin Time INR Today K91.2 - Postsurgical malabsorption, not elsewhere classified, Z90.3 - Acquired absence of stomach [part of] Complete Blood Count Auto Diff Today K91.2 - Postsurgical malabsorption, not elsewhere classified, Z90.3 - Acquired absence of stomach [part of] Hemoglobin A1c Today K91.2 - Postsurgical malabsorption, not elsewhere classified, Z90.3 - Acquired absence of stomach [part of] Partial Thromboplastin Time Today K91.2 - Postsurgical malabsorption, not elsewhere classified, Z90.3 - Acquired absence of stomach [part of] Type and Screen Today K91.2 - Postsurgical malabsorption, not elsewhere classified, Z90.3 - Acquired absence of stomach [part of] Comprehensive Met. Panel Today K91.2 - Postsurgical malabsorption, not elsewhere classified, Z90.3 - Acquired absence of stomach [part of] Medications: New cephalexin 500 mg PO Q12H 60 caps 2RF M79.3 - Panniculitis, unspecified docusate sodium (Colace) 100 mg PO DAILY 30 caps 2RF K59.00 - Constipation, unspecified Telehealth Telehealth Location of provider rendering services: practice address Location of patient: address on file Patient Identification confirmed using: Name, : Yes Telehealth method: voice only Patient verbally consented to treatment: Yes Patient verbally consented to billing insurance company: Yes Patient informed of any privacy concerns related to visit: Yes Minutes spent on Phone/Video with Pt.: 30 Coding Level of Care Code Tele Est Pt Level 4 (03045) Diagnoses Excess skin L98.7 Postgastrectomy malabsorption K91.2; Z90.3 Time Spent (min) 30
[2022-12-18 11:43] VITALS: BMI 24.4
== END 2022-12-18 12:09 | disposition home or self-care (01) ==
PROVIDERS: PCP Internal Medicine; Visit Provider Surgery
DX: L98.7 Excessive and redundant skin and subcutaneous tissue (principal); K91.2 Postsurgical malabsorption, not elsewhere classified; Z90.3 Acquired absence of stomach [part of]
CPT/HCPCS: 99214

== ENCOUNTER 2022-12-19 10:12 | Outpatient (REF) | payer OTHER, SELFPAY ==
[2022-12-19 10:35] LABS: MANUAL DIFF FLAG NO
[2022-12-19 11:23] LABS: Basophils Percent Auto 0.5 % (0-2); Eosinophils Absolute Auto 0.1 X10*3/uL (0.0-0.4); Eosinophils Percent Auto 1.5 % (0-4); Hematocrit 40.3 % (37.0-47.0); Hemoglobin 13.1 g/dl (12.0-16.0); Imm Gran Abs Auto 0.01 X10*3/uL (0.00-0.03); Imm Gran Pct Auto 0.2 % (0.0-0.4); Lymphocytes Absolute Auto 2.4 X10*3/uL (1.2-4.9); Lymphocytes Percent Auto 44.5 % (20-40); Mean Corpuscular HGB Conc 32.5 g/dl (31.0-35.0); Mean Corpuscular Hemoglobin 30.5 pg (27.0-33.0); Mean Corpuscular Volume 93.7 fL (80.0-98.0); Mean Platelet Volume 9.9 fL (9.4-12.3); Monocytes Absolute Auto 0.2 X10*3/uL (0.1-1.2); Monocytes Percent Auto 4.2 % (2-11); Neutrophils Absolute Auto 2.7 x10*3/uL (2.0-8.3); Neutrophils Percent Auto 49.1 % (45-73); Platelet Count 233 X10*3/uL (160-400); Red Cell Distribution Width 11.9 % (11.0-16.0); White Blood Count 5.5 X10*3/uL (4.8-10.8)
[2022-12-19 11:31] LABS: Estimated Average Glucose 97 mg/dL
[2022-12-19 11:57] LABS: Prothrombin Time 12.1 SEC (11.1-13.3)
[2022-12-19 11:59] LABS: Partial Thromboplastin Time 39.9 SEC (26.0-36.4)
[2022-12-19 12:20] LABS: Alanine Aminotransferase 6 U/L (0-31); Albumin Level 4.1 g/dL (3.5-5.0); Alkaline Phosphatase 55 U/L (39-117); Anion Gap 11 (12-20); Aspartate Amino Transferase 13 U/L (5-31); Bilirubin Total 1.3 mg/dL (0.0-1.0); Blood Urea Nitrogen 18 mg/dL (9-16); Calcium 9.5 mg/dL (8.4-10.2); Carbon Dioxide 23 mmol/L (22-29); Chloride 106 mmol/L (96-108); Estimated Glomerular Filt Rate > 60; Glucose Random 90 mg/dL (60-115); Potassium 4.4 mmol/L (3.3-5.1); Sodium 136 mmol/L (135-145)
== END 2022-12-19 10:13 | disposition home or self-care (01) ==
LOC: HO.LAB 10:12
PROVIDERS: Visit Provider Surgery
DX: K91.2 Postsurgical malabsorption, not elsewhere classified (principal); Z90.3 Acquired absence of stomach [part of]
CPT/HCPCS: 36415; 80053; 83036; 85025; 85610; 85730; 86850; 86900; 86901

== ENCOUNTER → 2022-12-25 11:19 | Outpatient (BNVA) | payer OTHER, SELFPAY | PROVIDERS: PCP Internal Medicine; Visit Provider Surgery ==

== ENCOUNTER 2022-12-29 05:57 | Day surgery (SDC) | payer OTHER, SELFPAY ==
[2022-12-23 11:11] VITALS: BMI 24.4
--- NOTE | 2022-12-26 08:44 | HO.ANESPROP2 ---
Documented by User: Carmelita Bonilla NP 12/26/22 08:47 HPI - Anesthesia Eval Consult details Narrative: 42yo F for Panniculectomy, Bilateral Brachioplasty s/p gastric sleeve 11/2021 with ETT-7 PMFSH Active Problems Active Problems: All Active Problems (Updated 12/23/22 @ 11:09 by Kiley Barahona RN) Constipation (Acute) Excess skin (Acute) Overweight (Acute) S/P laparoscopic sleeve gastrectomy (Acute) Liver fibrosis (Acute) BMI 37.0-37.9, adult (Acute) BMI 38.0-38.9,adult (Acute) Obesity (Acute) Dysthymia (Acute) Postgastrectomy malabsorption (Acute) Past Medical History Medical History Postgastrectomy malabsorption Former tobacco use Gestational diabetes Diabetes Family History Family History Maternal Grandfather Colon cancer Brain tumor Diabetes Maternal Aunt Diabetes Family history of problems with anesthesia: No Surgical History Surgical History History of sleeve gastrectomy Hx of arthroscopic knee surgery Hx of tubal ligation Hx of hysterectomy Hx of hand surgery History of Problems with Anesthesia: No Social History Social History Household Members Other:: 2 adult children, one minor child Are you a primary director of home care hospice to a significant other at home: Yes (minor child) Do you presently have visiting nurse or other home services: No Alcohol intake: current Alcohol intake frequency: does not drink Patient Tobacco Use Status: Former Tobacco user Quit Date: 2019 Tobacco use type: Cigarette Use of substances other than those prescribed or required for medical reasons: No Have you been hit, kicked, punched, or otherwise hurt by someone within the past year? If so, by whom?: No Are you DNR?: No Advance Directives: No Advance Directives Information Provided: Yes (brochure mailed) Advance Directives on File: No Recently lost weight without trying: No Eating poorly because of decreased appetite: No Nutrition Risks: No Nutritional Risk Patient : No FDLMP: 12/29/22 Poor oral hygiene: No service: No Current occupational status: employed Meds Allergies Allergy/AdvReac Type Severity Reaction Status Date / Time No Known Allergies Allergy Verified 12/18/22 11:41 Home Medications Medication Instructions Recorded Confirmed Last Taken Type biotin 5 mg capsule 5 mg PO DAILY 03/24/22 12/23/22 Unknown History multivitamin 1 tab PO DAILY 03/24/22 12/23/22 Unknown History mecobalamin (vitamin B12) 1,000 1,000 mcg PO DAILY 07/22/22 12/23/22 Unknown History mcg chewable tablet Exam Exam Date and Time: December 26, 2022 0844 Height,Weight and Vital Signs: Height 5 ft Weight 56.699 kg Pertinent Lab Results Pertinent Lab Results: Laboratory Tests 12/19/22 10:25 Blood Type O Positive Antibody Screen NEGATIVE Narrative Narrative: Laboratory Tests 12/19/22 10:30 WBC 5.5 Hgb 13.1 Hct 40.3 Plt Count 233 Sodium 136 Potassium 4.4 Chloride 106 Carbon Dioxide 23 BUN 18 H Creatinine 0.71 Assessment and Plan Assessment Anesthesia Assessment: Chart Reviewed Final Anesthetic Review Family History of Problems with Anesthesia: No History of Problems with Anesthesia: No Documented by User: Mariposa Queen MD 12/29/22 07:32 PMFSH Active Problems Active Problems: All Active Problems (Updated 12/29/22 @ 07:20 by Mariposa Queen MD) Constipation (Acute) Excess skin (Acute) S/P laparoscopic sleeve gastrectomy (Acute) BMI 24.4. Lost about 90# Liver fibrosis (Acute) H/o Obesity (Acute) Dysthymia (Acute) Postgastrectomy malabsorption (Acute) Past Medical History Medical History Postgastrectomy malabsorption Former tobacco use Gestational diabetes Diabetes Family History Family History Maternal Grandfather Colon cancer Brain tumor Diabetes Maternal Aunt Diabetes Surgical History Surgical History History of sleeve gastrectomy Hx of arthroscopic knee surgery Hx of tubal ligation Hx of hysterectomy Hx of hand surgery Social History Social History Household Members Other:: 2 adult children, one minor child Are you a primary director of home care hospice to a significant other at home: Yes (minor child) Do you presently have visiting nurse or other home services: No Alcohol intake: current Alcohol intake frequency: does not drink Patient Tobacco Use Status: Former Tobacco user Quit Date: 2019 Tobacco use type: Cigarette Use of substances other than those prescribed or required for medical reasons: No Have you been hit, kicked, punched, or otherwise hurt by someone within the past year? If so, by whom?: No Are you DNR?: No Advance Directives: No Advance Directives Information Provided: Yes (brochure mailed) Advance Directives on File: No Recently lost weight without trying: No Eating poorly because of decreased appetite: No Nutrition Risks: No Nutritional Risk Patient : No FDLMP: 12/29/22 Poor oral hygiene: No service: No Current occupational status: employed Meds Allergies Allergy/AdvReac Type Severity Reaction Status Date / Time No Known Allergies Allergy Verified 12/18/22 11:41 Home Medications Medication Instructions Recorded Confirmed Last Taken Type biotin 5 mg capsule 5 mg PO DAILY 03/24/22 12/23/22 Unknown History multivitamin 1 tab PO DAILY 03/24/22 12/23/22 Unknown History mecobalamin (vitamin B12) 1,000 1,000 mcg PO DAILY 07/22/22 12/23/22 Unknown History mcg chewable tablet Exam Height,Weight and Vital Signs: Height 5 ft Weight 56.699 kg Vital Signs Temp Pulse Resp BP Pulse Ox O2 Del Method 12/29/22 06:48 97.9 F 68 18 103/65 99 Room Air Narrative Narrative: Laboratory Tests 12/19/22 10:30 WBC 5.5 Hgb 13.1 Hct 40.3 Plt Count 233 Sodium 136 Potassium 4.4 Chloride 106 Carbon Dioxide 23 BUN 18 H Creatinine 0.71 Lab Results 12/19/22 Range/Units 10:25 Blood Type O Positive Antibody Screen NEGATIVE Airway Mallampati Class: I TM Dist: >3cm Neck ROM: Full Loose/Missing/Broken Teeth: No (1 filling fell out back tooth. Denies loose,missing teeth) Heart: RRR Lungs: CTAB Assessment and Plan Assessment Anesthesia Assessment: Anesthesia Plan Discussed Final Anesthetic Review NPO: Yes ASA Class: II Final Preanesthetic Review: No Changes in Pt Med Stat, Meds/Allgs Chart Reviewed, Consent Obtained/Reviewed and Anes Risks/Benef Reviewed Patient Risk: Low Procedure Risk: Low Assessment/Block/Sedation in SS: Assess/Block/Sedation-SS Anesthetic Plan Anesthetic Plan: GA Disposition: Standard PACU
--- NOTE | 2022-12-26 21:26 | MHC.SHP ---
Pre-Procedural Eval Section A Date of Service: 12/26/22 The patient is an INPATIENT: No The History & Physical has been completed within 30 days and I have reviewed it.: Yes Section B Chief Complaint: Excessive and redundant skin and subcutaneous tiss Relevant Family History (Specify if Yes): No Relevant Social History: None Present Medications: None Medical History: No relevant PMH History of Previous Operations: Relevant previous surgery/procedure and date(s) (Laparoscopic sleeve gastrectomy) Allergies: Allergies Allergy/AdvReac Type Severity Reaction Status Date / Time No Known Allergies Allergy Verified 12/18/22 11:41 Review of Systems Sugical H&P ROS: Negative: Constitution, Cardiovascular, Respiratory, Neurological, Psychiatric, Hem-Onc, Allergic/Immunologic, Gastrointestinal, Genitourinary, Musculoskeletal, Integumentary, Endocrine and Eyes/Ears/Nose/Throat Exam Surgical H&P Exam: Normal: HEENT, Normal: Heart, Normal: Lungs, Normal: Skin and Normal: Neurological and Significant Findings: Extremities (excess skin) and Significant Findings: Abdomen (excess skin) Plan Diagnosis/Plan: Unchanged I have reviewed the history and physical and performed a pertinent physical examination on my patient. No changes have occurred unless specified. Time Spent With Patient Time: Total time managing care of this patient today ____ minutes.
[2022-12-29] VITALS (13 sets, daily range): BP systolic 102–131; BP diastolic 52–69; PULSE 68–81; RESP 12–18; TEMP 36.3–36.7; O2SAT 99–100; BMI 24.4
[2022-12-29] MEDS: Lactated Ringers 1,000 ML 100 ML IVCONT (07:49)
--- NOTE | 2022-12-29 07:59 | PM.OP ---
Brief Operative Note Date of Service: 12/29/22 Pre-op diagnosis: Excess skin abdomen and upper arms Post-op diagnosis: same Procedure: PROCEDURE: Panniculectomy with umbilical transposition and bilateral subcutaneous fat flaps, bilateral brachioplasty INDICATION: This a 71 year old female who underwent laparoscopic sleeve gastrectomy on 11/07/2021. She had an excellent result achieving a BMI of 24.5 kg/m2 with a total weight loss of 86.4lbs, or 40.87% of her TBWL. As a result, she has developed panniculitis which has not resolved despite continuous use of clotrimazole ointment as well as skin irritation and intetrigo in both upper arms. On exam she has extreme skin laxity due to massive weight loss and age with the abdominal pannus completely hiding the genitalia and the upper arms 5 cm below the level of the triceps. Panniculectomy with bilateral brachioplasty was recommended. We discussed the two options for the panniculectomy of using a combined vertical and horizontal incisions or just a horizontal (bikini) incision. It was my recommendation to do only horizontal incision based on her body habitus and skin laxity. The patient agreed with this. Risks and complications were discussed with the patient including bleeding, infection, umbilical loss, flap necrosis, asymmetry, dehiscence, seroma, VTE. The patient understood the risks and was in agreement to proceed with surgery. PROCEDURE: The incisions were appropriately marked at the preop area with the patient standing and laying down. After induction of general anesthesia a Steele catheter and pneumatic compression devices were placed. The patient was prepped and draped in the usual sterile manner and the incisions were marked again and confirmed. In similar fashion both upper arms were also marked when the patient was standing. The upper arms were performed first. The skin was infiltrated with lidocaine and epinephrine. Skin was excised with the #15 blade. Cautery was used to separate the skin from subcutaneous tissues. Careful attention was paid to make sure that the plain of excision was superficial as close to the skin as possible. The right upper arm skin was 27 cm x 8 cm and the left 28 cm x 8 cm. Skin was closed in two layers using interrupted 3.0 Monocryl sutures for the dermis and 4.0 subcuticular Monocryl suture for the skin. The skin was infiltrated with lidocaine and epinephrine. The #10 blade scalpel was used for the large incisions and the #15 blade scalpel for the umbilicus. Cautery was used to divide the subcutaneous tissues until the fascia was identified. Then I used the cautery to separate the pannus from the fascia. The inferior incision was made initially and I mobilized the flap for a several centimeters cephalad to the umbilicus. The umbilicus was incised circumferentially and detached from the surrounding tissues all the way to the fascia while its stalk was preserved. With the patient in reflex position I confirmed that the skin flaps were appropriate and would allow for the tissues to come together with reasonable tension. At that point a horizontal incision was made 4 cm above the umbilicus. #10 blade was used for the skin, cautery for the dermis and the remaining tissues. A subcutaneous fat flap was raised from the upper skin flap in order to fill the space under the skin and support the closure of the two flaps. In addition the inferior flap was mobilized caudally for a few centimeters to create a space for the subcutaneous fat flap as well as relieve tension from the closure. A circumferential incision was made at the area where the umbilicus would be re-implanted. The umbilicus was appropriately oriented and was delivered through the defect and was secured in place with a Onur. No bleeding was noted anywhere. One LUCI drain was placed from the left corner of the horizontal incision across the wound and was secured in place with a silk suture. A total of 7ml of Zynrelef was applied on top of the fascia and under the subcutaneous fat flaps. The subcutaneous fat flap was secured under the inferior flap with several interrupted 3.0 Monocryl sutures. The two flaps were brought together and were attached at the midline of the horizontal incision with a #3.0 Monocryl suture. At that point the umbilicus was properly oriented and was re-approximated to the skin with 8 interrupted 3.0 Monocryl sutures. In a similar fashion the skin flaps were re-approximated with multiple 3.0 Monocryl sutures. The skin was closed in all incisions and umbilicus with 4.0 Monocryl sutures. Steri-strips, xeroform gauzes and gauzes were used to cover the incisions. An abdominal binder was also placed. The was awaken and was transferred to the recover room in a stable condition. I was present and performed the entire procedure. Mr. Ramires was the assistant quality manager. Je Gonzalez MD, PhD, FACS Surgeon: Malachi Gonzalez MD Surgeon: Malachi Gonzalez MD Anesthesia: GETA, local and other (7ml Zynrelef) Was an Equipment Operator/Laborer/Supervisor used for this Procedure?: No Equipment Operator/Laborer/Supervisor: Rinku Ramires Estimated blood loss (mL): 10 IV fluids (mL): 3,000 Urine output (mL): 100 Pathology: other (1) abdominal pannus, 2) left upper arm, 3) right upper arm) Condition: stable Disposition: PACU
== END 2022-12-29 17:19 | disposition home or self-care (01) ==
PROVIDERS: PCP Internal Medicine; Visit Provider Surgery
PROC: 0JB80ZZ Excision of Abdomen Subcutaneous Tissue and Fascia, Open Approach (ICD-10-PCS; CPT 15830; principal; 2022-12-29 07:30)
PROC: (CPT 15836; 2022-12-29 07:30)
DX: L98.7 Excessive and redundant skin and subcutaneous tissue (principal); E65 Localized adiposity; Z90.3 Acquired absence of stomach [part of]; K91.2 Postsurgical malabsorption, not elsewhere classified; Z98.84 Bariatric surgery status; E66.3 Overweight; Z68.24 Body mass index [BMI] 24.0-24.9, adult; Z79.899 Other long term (current) drug therapy; Z87.891 Personal history of nicotine dependence
CPT/HCPCS: 15830; 15847; 15836; 86850; 86900; 86901; 88304; C9088; J0131; J0690; J1100; J1170; J2250; J2371; J2405; J3010; J3370

== ENCOUNTER → 2022-12-29 05:57 | Outpatient (BNV) | payer OTHER, SELFPAY | PROVIDERS: PCP Internal Medicine; Visit Provider Surgery | DX: L98.7 Excessive and redundant skin and subcutaneous tissue (principal); Z90.3 Acquired absence of stomach [part of]; Z98.84 Bariatric surgery status | CPT/HCPCS: 15830; 15836 ==

== ENCOUNTER → 2023-01-06 11:08 | Outpatient (BNVA) | payer OTHER, SELFPAY | PROVIDERS: PCP Internal Medicine; Visit Provider Physician Assistant Surgical ==

== ENCOUNTER 2023-01-06 11:10 | Outpatient (AMB) | payer OTHER, SELFPAY ==
--- NOTE | 2023-01-06 13:29 | A.OFFVIS_ITS ---
Intake Intake Visit Reasons: (OV) 8 Days Pannic/Brachio 12/29/22 Allergies No Known Allergies Allergy (Verified 12/18/22 11:41) HPI HPI Comments History of Present Illness Details Patient is a pleasant 6-year-old female, status post bilateral brachioplasty and panniculectomy on 12/29/2022. She reports overall doing very well and offers no significant complaints. She is noting approximately 40 mL out via collection bulb daily. Tolerating her meal plan as recommended by Dr. Gonzalez including 4 celebrate rebuild protein shakes per day. [facility] Medical History Postgastrectomy malabsorption Former tobacco use Gestational diabetes Diabetes Surgical History History of sleeve gastrectomy Hx of arthroscopic knee surgery Hx of tubal ligation Hx of hysterectomy Hx of hand surgery Family History Maternal Grandfather Colon cancer Brain tumor Diabetes Maternal Aunt Diabetes Social History Household Members Other:: 2 adult children, one minor child Are you a primary youth care specialist to a significant other at home: Yes (minor child) Do you presently have visiting nurse or other home services: No Alcohol intake: current Alcohol intake frequency: does not drink Patient Tobacco Use Status: Former Tobacco user Quit Date: 2019 Tobacco use type: Cigarette service: No Current occupational status: employed Physical Exam GI Inspection: Yes incision (Transverse incision intact without infection. Umbilicus viable.) Extrem Other: Bilateral upper extremity incisions clean, dry, intact. No evidence of dehiscence. No evidence of infection. Assessment & Plan Assessment & Plan (1) S/P brachioplasty: Code(s): Z98.890 - Other specified postprocedural states Plan: Continue current treatment plan. Continue wound care daily. Return to the office 1 week. (2) S/P panniculectomy: Code(s): Z98.890 - Other specified postprocedural states Plan: Continue current treatment plan. Continue wound care. Follow drain output. Continue abdominal binder. Return to clinic 1 week. Coding Level of Care Code Global (32956) Diagnoses S/P brachioplasty Z98.890 S/P panniculectomy Z98.890
== END 2023-01-06 13:32 | disposition home or self-care (01) ==
PROVIDERS: PCP Internal Medicine; Visit Provider Physician Assistant Surgical
DX: Z98.890 Other specified postprocedural states (principal)
CPT/HCPCS: 99024

== ENCOUNTER 2023-01-13 11:04 | Outpatient (AMB) | payer OTHER, SELFPAY ==
[2023-01-13 11:23] VITALS: BP 113/68; PULSE 72; TEMP 35.9; O2SAT 98
--- NOTE | 2023-01-13 11:23 | MHC.OFFVISWM ---
Intake VS Expanded 01/13/23 11:23 BP 113/68 Blood Pressure Location Rt brachial Blood Pressure Position Sitting Pulse 72 Pulse Source Pulse Oximeter Temp 96.7 F L Temperature Source Temporal Artery Scan Pulse Oximetry 98 Oxygen Delivery Method Room Air Intake Visit Reasons: (OV) Pannic/Brachio 12/29/22 Allergies No Known Allergies Allergy (Verified 12/18/22 11:41) HPI HPI Comments History of Present Illness Details The patient is a pleasant 42-year-old female who returns to the office today after her recent panniculectomy and brachioplasty performed on 12/29/2022. She did have a very small area of dehiscence at the proximal arm incisions bilaterally, these have scabbed over and show no evidence of infection. Her abdominal incision looks good and she has no complaints. She continues her antibiotics and 3 celebrate rebuild shakes with 1/2 scoop per shake, 1 bar and a small meal. She reports approximately 25 mL serosanguineous fluid out of the drain daily. [facility] Medical History Postgastrectomy malabsorption Former tobacco use Gestational diabetes Diabetes Surgical History History of sleeve gastrectomy Hx of arthroscopic knee surgery Hx of tubal ligation Hx of hysterectomy Hx of hand surgery Family History Maternal Grandfather Colon cancer Brain tumor Diabetes Maternal Aunt Diabetes Social History Household Members Other:: 2 adult children, one minor child Are you a primary date night caregiver to a significant other at home: Yes (minor child) Do you presently have visiting nurse or other home services: No Alcohol intake: current Alcohol intake frequency: does not drink Patient Tobacco Use Status: Former Tobacco user Quit Date: 2019 Tobacco use type: Cigarette service: No Current occupational status: employed Physical Exam Vital Signs: Last Vital Signs Temp 96.7 F L 01/13/23 11:23 Pulse 72 01/13/23 11:23 BP 113/68 01/13/23 11:23 Pulse Ox 98 01/13/23 11:23 Oxygen Delivery Method Room Air 01/13/23 11:23 GI Other: Transverse abdominal incision is clean, dry, intact. Umbilicus is viable. 0.8 by 0.2 cm dehiscence at the proximal incision a bilateral arms. No evidence of infection. Assessment & Plan Assessment & Plan (1) S/P panniculectomy: Code(s): Z98.890 - Other specified postprocedural states Plan: Continue current meal plan, treatment plan, abdominal binder, monitoring drain output, antibiotics. Return to clinic 1 week. She states that she no longer needs visiting nurses. (2) S/P brachioplasty: Code(s): Z98.890 - Other specified postprocedural states Coding Level of Care Code Global (73929) Diagnoses S/P panniculectomy Z98.890 S/P brachioplasty Z98.890
== END 2023-01-13 12:07 | disposition home or self-care (01) ==
PROVIDERS: PCP Internal Medicine; Visit Provider Physician Assistant Surgical
DX: Z98.890 Other specified postprocedural states (principal)
CPT/HCPCS: 99024

== ENCOUNTER → 2023-01-13 11:04 | Outpatient (BNVA) | payer OTHER, SELFPAY | PROVIDERS: PCP Internal Medicine; Visit Provider Physician Assistant Surgical ==

== ENCOUNTER 2023-01-20 10:35 | Outpatient (AMB) | payer OTHER, SELFPAY ==
--- NOTE | 2023-01-20 10:58 | MHC.OFFVISWM ---
Intake Intake Visit Reasons: (OV) Pannic/Brachio 12/29/22 Allergies No Known Allergies Allergy (Verified 12/18/22 11:41) HPI HPI Comments History of Present Illness Details 42-year-old female comes into the office today upon my request. She called the office this morning stating that she has not had any drainage out of her drain in the last 24 hours. She reports that prior to this she has been having approximately 15-20 mL of serosanguineous fluid daily for the last 4 days although as reported yesterday it stopped. She continues to take her antibiotics and follows her meal plan. She has no complaints of pain or bloating. [facility] Medical History Postgastrectomy malabsorption Former tobacco use Gestational diabetes Diabetes Surgical History History of sleeve gastrectomy Hx of arthroscopic knee surgery Hx of tubal ligation Hx of hysterectomy Hx of hand surgery Family History Maternal Grandfather Colon cancer Brain tumor Diabetes Maternal Aunt Diabetes Social History Household Members Other:: 2 adult children, one minor child Are you a primary social worker palliative care to a significant other at home: Yes (minor child) Do you presently have visiting nurse or other home services: No Alcohol intake: current Alcohol intake frequency: does not drink Patient Tobacco Use Status: Former Tobacco user Quit Date: 2019 Tobacco use type: Cigarette service: No Current occupational status: employed Coding Level of Care Code Global (06424)
== END 2023-01-20 11:00 | disposition home or self-care (01) ==
PROVIDERS: PCP Internal Medicine; Visit Provider Physician Assistant Surgical
DX: Z48.89 Encounter for other specified surgical aftercare (principal)
CPT/HCPCS: 99024

== ENCOUNTER → 2023-01-20 10:35 | Outpatient (BNVA) | payer OTHER, SELFPAY | PROVIDERS: PCP Internal Medicine; Visit Provider Physician Assistant Surgical ==

== ENCOUNTER 2023-01-21 11:58 | Outpatient (AMB) | payer OTHER, SELFPAY ==
[2023-01-21 12:08] VITALS: BP 115/56; PULSE 67; TEMP 35.9; O2SAT 100
--- NOTE | 2023-01-21 12:08 | A.OFFVIS_ITS ---
Intake VS Expanded 01/21/23 12:08 BP 115/56 L Blood Pressure Location Rt brachial Blood Pressure Position Sitting Pulse 67 Pulse Source Pulse Oximeter Temp 96.7 F L Temperature Source Temporal Artery Scan Pulse Oximetry 100 Oxygen Delivery Method Room Air Intake Visit Reasons: (OV) Pannic/Brachio 12/29/22 Allergies No Known Allergies Allergy (Verified 01/21/23 12:09) HPI HPI Comments History of Present Illness Details 42-year-old female returns to the office today in follow-up. She was last seen yesterday due to a question of malfunctioning drain. She is status post panniculectomy in brachioplasty on 12/29/2022. Since being seen yesterday, her drain has put out approximately 20 mL of serosanguineous fluid. No other active issues. She continues on antibiotics and her meal plan per Dr. Ford [facility] Medical History Postgastrectomy malabsorption Former tobacco use Gestational diabetes Diabetes Surgical History History of sleeve gastrectomy Hx of arthroscopic knee surgery Hx of tubal ligation Hx of hysterectomy Hx of hand surgery Family History Maternal Grandfather Colon cancer Brain tumor Diabetes Maternal Aunt Diabetes Social History Household Members Other:: 2 adult children, one minor child Are you a primary care transition coordinator to a significant other at home: Yes (minor child) Do you presently have visiting nurse or other home services: No Alcohol intake: current Alcohol intake frequency: does not drink Patient Tobacco Use Status: Former Tobacco user Quit Date: 2019 Tobacco use type: Cigarette service: No Current occupational status: employed Physical Exam Vital Signs: Last Vital Signs Temp 96.7 F L 01/21/23 12:08 Pulse 67 01/21/23 12:08 BP 115/56 L 01/21/23 12:08 Pulse Ox 100 01/21/23 12:08 Oxygen Delivery Method Room Air 01/21/23 12:08 GI Other: Transverse incision is clean, dry, intact. Umbilicus is viable. No evidence of infection. There are 2 small areas of scabbed dehiscence of her arms, the 1st is at the proximal left incision and the 2nd is at the distal right incision. No evidence of infection. The area is approximately 0.8 x 0.4 cm. Assessment & Plan Assessment & Plan (1) S/P panniculectomy: Code(s): Z98.890 - Other specified postprocedural states Plan: Continue current treatment plans. Continue monitoring drain output. She will return to clinic next Thursday with possible removal of the drain at that time based upon drainage output. Coding Level of Care Code Global (07428) Diagnoses S/P panniculectomy Z98.890
== END 2023-01-21 12:32 | disposition home or self-care (01) ==
PROVIDERS: PCP Internal Medicine; Visit Provider Physician Assistant Surgical
DX: Z98.890 Other specified postprocedural states (principal)
CPT/HCPCS: 99024

== ENCOUNTER → 2023-01-21 11:58 | Outpatient (BNVA) | payer OTHER, SELFPAY | PROVIDERS: PCP Internal Medicine; Visit Provider Physician Assistant Surgical ==

== ENCOUNTER 2023-01-26 11:40 | Outpatient (AMB) | payer OTHER, SELFPAY ==
--- NOTE | 2023-01-26 11:47 | MHC.OFFVISWM ---
Intake VS Expanded 01/26/23 11:53 BP 125/62 Blood Pressure Location Rt brachial Blood Pressure Position Sitting Pulse 77 Pulse Source Pulse Oximeter Temp 96.8 F Temperature Source Temporal Artery Scan Pulse Oximetry 99 Oxygen Delivery Method Room Air Intake Visit Reasons: (OV) Pannic/Brachio 12/29/22 Allergies No Known Allergies Allergy (Verified 01/26/23 11:54) HPI HPI Comments History of Present Illness Details The patient is a pleasant 42-year-old female who returns to the office today in follow-up from her panniculectomy in brachioplasty performed on 12/29/2022. She states that over the last 1 week, she has had decreasing amounts of drainage in the collection bulb per 24 hours. 20 mL down to 15 mL down to 10 mL over the last 3 days. She denies any complaints of pain, abdominal fullness, bloating. She continues antibiotics and following the meal planned. [facility] Medical History Postgastrectomy malabsorption Former tobacco use Gestational diabetes Diabetes Surgical History History of sleeve gastrectomy Hx of arthroscopic knee surgery Hx of tubal ligation Hx of hysterectomy Hx of hand surgery Family History Maternal Grandfather Colon cancer Brain tumor Diabetes Maternal Aunt Diabetes Social History Household Members Other:: 2 adult children, one minor child Are you a primary health care marketing manager to a significant other at home: Yes (minor child) Do you presently have visiting nurse or other home services: No Alcohol intake: current Alcohol intake frequency: does not drink Patient Tobacco Use Status: Former Tobacco user Quit Date: 2019 Tobacco use type: Cigarette service: No Current occupational status: employed Physical Exam Vital Signs: Last Vital Signs Temp 96.8 F 01/26/23 11:53 Pulse 77 01/26/23 11:53 BP 125/62 01/26/23 11:53 Pulse Ox 99 01/26/23 11:53 Oxygen Delivery Method Room Air 01/26/23 11:53 GI Other: Transverse incision is clean, dry, intact. Drain was removed without difficulty. Arm incisions healing nicely with scab to the proximal left incision and distal right incision. Inspection: Yes incision Assessment & Plan Assessment & Plan (1) S/P panniculectomy: Code(s): Z98.890 - Other specified postprocedural states Plan: No shower times 48 hours. Continue antibiotics for 2 more weeks. Continue abdominal binder. May not return to work until 3 months postoperatively given her job requiring significant heavy lifting. Continue meal plan. Return to clinic 2 weeks. (2) S/P brachioplasty: Code(s): Z98.890 - Other specified postprocedural states Plan: As above Coding Level of Care Code Global (73276) Diagnoses S/P panniculectomy Z98.890 S/P brachioplasty Z98.890
[2023-01-26 11:53] VITALS: BP 125/62; PULSE 77; TEMP 36; O2SAT 99
== END 2023-01-26 12:09 | disposition home or self-care (01) ==
PROVIDERS: PCP Internal Medicine; Visit Provider Physician Assistant Surgical
DX: Z98.890 Other specified postprocedural states (principal)
CPT/HCPCS: 99024

== ENCOUNTER → 2023-01-26 11:40 | Outpatient (BNVA) | payer OTHER, SELFPAY | PROVIDERS: PCP Internal Medicine; Visit Provider Physician Assistant Surgical ==

== ENCOUNTER 2023-02-10 11:17 | Outpatient (AMB) | payer OTHER, SELFPAY ==
[2023-02-10 11:27] VITALS: BP 122/75; PULSE 78; TEMP 35.7; O2SAT 100
--- NOTE | 2023-02-10 11:27 | MHC.OFFVISWM ---
Intake VS Expanded 02/10/23 11:27 BP 122/75 Blood Pressure Location Rt brachial Blood Pressure Position Sitting Pulse 78 Pulse Source Pulse Oximeter Temp 96.2 F L Temperature Source Temporal Artery Scan Pulse Oximetry 100 Oxygen Delivery Method Room Air Intake Visit Reasons: (OV) Pannic/Brachio 12/29/22 Allergies No Known Allergies Allergy (Verified 02/10/23 11:28) HPI HPI Comments History of Present Illness Details 42-year-old female status post panniculectomy in brachioplasty performed on 12/29/2022. She was last seen in the office on 01/26/2023 at which point her drain was removed. Since last visit, she has done well. Today was the last day of her oral antibiotics. She has no significant complaints at today's visit. [facility] Medical History Postgastrectomy malabsorption Former tobacco use Gestational diabetes Diabetes Surgical History History of sleeve gastrectomy Hx of arthroscopic knee surgery Hx of tubal ligation Hx of hysterectomy Hx of hand surgery Family History Maternal Grandfather Colon cancer Brain tumor Diabetes Maternal Aunt Diabetes Social History Household Members Other:: 2 adult children, one minor child Are you a primary caregivers non medical to a significant other at home: Yes (minor child) Do you presently have visiting nurse or other home services: No Alcohol intake: current Alcohol intake frequency: does not drink Patient Tobacco Use Status: Former Tobacco user Quit Date: 2019 Tobacco use type: Cigarette service: No Current occupational status: employed Physical Exam Vital Signs: Last Vital Signs Temp 96.2 F L 02/10/23 11:27 Pulse 78 02/10/23 11:27 BP 122/75 02/10/23 11:27 Pulse Ox 100 02/10/23 11:27 Oxygen Delivery Method Room Air 02/10/23 11:27 GI Other: Transverse abdominal incision is healing very nicely. Abdomen is soft without appreciable fluctuance. Umbilicus is viable. Skin Other: Bilateral brachioplasty incisions are healing nicely without any evidence of infection. They are symmetric and she is satisfied with her results. Assessment & Plan Assessment & Plan (1) S/P panniculectomy: Code(s): Z98.890 - Other specified postprocedural states Plan: She may return to walking on the treadmill with the use of her abdominal binder. No heavy lifting, continue meal plan. She may stop the antibiotics. She will remain out of work for a total of 3 months as there is no light duty for her job working for [employer]. Return to the office in 2 weeks. (2) S/P brachioplasty: Code(s): Z98.890 - Other specified postprocedural states Plan: As above Coding Level of Care Code Global (25391) Diagnoses S/P panniculectomy Z98.890 S/P brachioplasty Z98.890
== END 2023-02-10 11:39 | disposition home or self-care (01) ==
PROVIDERS: PCP Internal Medicine; Visit Provider Physician Assistant Surgical
DX: Z98.890 Other specified postprocedural states (principal)
CPT/HCPCS: 99024

== ENCOUNTER → 2023-02-10 11:17 | Outpatient (BNVA) | payer OTHER, SELFPAY | PROVIDERS: PCP Internal Medicine; Visit Provider Physician Assistant Surgical | DX: Z98.890 Other specified postprocedural states (principal) | CPT/HCPCS: 99212 ==

== ENCOUNTER 2023-02-24 13:44 | Outpatient (AMB) | payer OTHER, SELFPAY ==
--- NOTE | 2023-02-24 13:45 | A.OFFVIS_ITS ---
Intake VS Expanded 02/24/23 13:50 BP 127/64 Blood Pressure Location Rt brachial Blood Pressure Position Sitting Pulse 78 Pulse Source Pulse Oximeter Temp 97.1 F Temperature Source Tympanic Pulse Oximetry 99 Oxygen Delivery Method Room Air Height 5 ft Weight 126 lb 12.8 oz BMI 24.8 Body Fat % 28.2 Body Fat Mass 35.8 Fat Free Mass 91.0 Visceral Fat Rating 4.0 Body Water % 51.3 Body Water Mass 65.0 Muscle Mass/Score 86.4 Basal Metabolic Rate/Score 2,039 Intake Visit Reasons: (OV) Pannic/Brachio 12/29/22 Research Associate Molecular Biology Required: No Allergies No Known Allergies Allergy (Verified 02/10/23 11:28) Medication List - Last Reconciled 02/24/23 by MELITA May biotin 5 mg PO DAILY cholecalciferol (vitamin D3) 50 mcg PO DAILY docusate sodium (Colace) 100 mg PO DAILY mecobalamin (vitamin B12) 1,000 mcg PO DAILY multivitamin 1 tab PO DAILY ondansetron 4 mg PO Q8H PRN HPI HPI Comments History of Present Illness Details Pleasant 42-year-old female returns to the office today in follow-up. She is status post panniculectomy in brachioplasty performed on 12/29/2022. Approximately 2 months post. No sig complaints PFSH Medical History Postgastrectomy malabsorption Former tobacco use Gestational diabetes Diabetes Surgical History History of sleeve gastrectomy Hx of arthroscopic knee surgery Hx of tubal ligation Hx of hysterectomy Hx of hand surgery Family History Maternal Grandfather Colon cancer Brain tumor Diabetes Maternal Aunt Diabetes Social History Household Members Other:: 2 adult children, one minor child Are you a primary home health aide caregiver to a significant other at home: Yes (minor child) Do you presently have visiting nurse or other home services: No Alcohol intake: current Alcohol intake frequency: does not drink Patient Tobacco Use Status: Former Tobacco user Quit Date: 2019 Tobacco use type: Cigarette service: No Current occupational status: employed Review of Systems Const All systems reviewed & are unremarkable except as noted in HPI and below Physical Exam Vital Signs: Last Vital Signs Temp 97.1 F 02/24/23 13:50 Pulse 78 02/24/23 13:50 BP 127/64 02/24/23 13:50 Pulse Ox 99 02/24/23 13:50 Oxygen Delivery Method Room Air 02/24/23 13:50 BMI result Body Mass Index 24.8 GI Other: c/d/i Assessment & Plan Assessment & Plan (1) S/P panniculectomy: Code(s): Z98.890 - Other specified postprocedural states Plan: Healing well. Continue meal plan. Continue binder. May stop antibiotics. Return to the office in 1 month (2) S/P brachioplasty: Code(s): Z98.890 - Other specified postprocedural states Plan: Doing well. Healed nicely. Coding Level of Care Code Global (69611) Diagnoses S/P panniculectomy Z98.890 S/P brachioplasty Z98.890
[2023-02-24 13:50] VITALS: BP 127/64; PULSE 78; TEMP 36.2; O2SAT 99; BMI 24.8
== END 2023-02-24 14:11 | disposition home or self-care (01) ==
PROVIDERS: PCP Internal Medicine; Visit Provider Physician Assistant Surgical
DX: Z98.890 Other specified postprocedural states (principal)
CPT/HCPCS: 99024

== ENCOUNTER → 2023-02-24 13:44 | Outpatient (BNVA) | payer OTHER, SELFPAY | PROVIDERS: PCP Internal Medicine; Visit Provider Physician Assistant Surgical | DX: Z98.890 Other specified postprocedural states (principal) | CPT/HCPCS: 99212 ==

== ENCOUNTER → 2023-03-30 11:30 | Outpatient (BNVA) | payer OTHER, SELFPAY | PROVIDERS: PCP Internal Medicine; Visit Provider Physician Assistant Surgical ==

== ENCOUNTER 2023-04-15 12:53 | Outpatient (AMB) | payer OTHER, SELFPAY ==
--- NOTE | 2023-04-15 13:04 | MHC.OFFVISWM ---
Intake VS Expanded 04/15/23 13:11 BP 115/60 Blood Pressure Location Rt brachial Blood Pressure Position Sitting Pulse 75 Pulse Source Pulse Oximeter Temp 98.1 F Temperature Source Temporal Artery Scan Pulse Oximetry 99 Oxygen Delivery Method Room Air Height 5 ft Weight 127 lb 6.4 oz BMI 24.9 Body Fat % 29.5 Body Fat Mass 37.4 Fat Free Mass 89.8 Visceral Fat Rating 4.0 Body Water % 50.4 Body Water Mass 64.2 Muscle Mass/Score 85.0 Basal Metabolic Rate/Score 1,231 Intake Visit Reasons: (OV) PO LSG 11/07/21 Allergies No Known Allergies Allergy (Verified 04/15/23 13:07) HPI HPI Comments History of Present Illness Details Patient is a very pleasant 42-year-old female who returns to the office today in follow-up. She is status post sleeve gastrectomy on 11/07/2021 and panniculectomy with brachioplasty on 12/29/2022. Weight today is 127.4 lb with a BMI of 24.8. Meal plan: 03/10 scoop celebrate rebuild 7 forks of protein and 7 of vegetables 60 oz of water Exercise plan: elliptical at home 1 hour 3 x per week. 500 enid [facility] Medical History Postgastrectomy malabsorption Former tobacco use Gestational diabetes Diabetes Surgical History History of sleeve gastrectomy Hx of arthroscopic knee surgery Hx of tubal ligation Hx of hysterectomy Hx of hand surgery Family History Maternal Grandfather Colon cancer Brain tumor Diabetes Maternal Aunt Diabetes Social History Household Members Other:: 2 adult children, one minor child Are you a primary day care home mother to a significant other at home: Yes (minor child) Do you presently have visiting nurse or other home services: No Alcohol intake: current Alcohol intake frequency: does not drink Patient Tobacco Use Status: Former Tobacco user Quit Date: 2019 Tobacco use type: Cigarette service: No Current occupational status: employed Physical Exam Skin Other: Incisions from her brachioplasty and panniculectomy have healed nicely. Umbilicus is viable and healed nicely. Assessment & Plan Assessment & Plan (1) S/P laparoscopic sleeve gastrectomy: Code(s): Z98.84 - Bariatric surgery status Plan: Change meal plan: Fair life core power shake Meal as previous, 742 protein in 7 of salad or vegetables. She will text with any questions or concerns. Continue exercise. Return to clinic in May for her 18 month follow-up appointment (2) S/P panniculectomy: Code(s): Z98.890 - Other specified postprocedural states Plan: Continue with vitamin E and massage scar tissue Coding Level of Care Code Est Pt Level 3 (68430) Diagnoses S/P laparoscopic sleeve gastrectomy Z98.84 S/P panniculectomy Z98.890
[2023-04-15 13:11] VITALS: BP 115/60; PULSE 75; TEMP 36.7; O2SAT 99; BMI 24.9
== END 2023-04-15 13:26 | disposition home or self-care (01) ==
PROVIDERS: PCP Internal Medicine; Visit Provider Physician Assistant Surgical
DX: Z71.3 Dietary counseling and surveillance (principal); Z90.3 Acquired absence of stomach [part of]; Z98.84 Bariatric surgery status
CPT/HCPCS: 99213

== ENCOUNTER → 2023-04-15 12:53 | Outpatient (BNVA) | payer OTHER, SELFPAY | PROVIDERS: PCP Internal Medicine; Visit Provider Physician Assistant Surgical | DX: Z98.84 Bariatric surgery status (principal); Z98.890 Other specified postprocedural states | CPT/HCPCS: 99212 ==

== ENCOUNTER 2023-05-25 13:01 | Outpatient (AMB) | payer OTHER, SELFPAY ==
--- NOTE | 2023-05-25 13:04 | A.OFFVIS_ITS ---
Intake VS Expanded 05/25/23 13:10 BP 112/55 L Blood Pressure Location Rt brachial Blood Pressure Position Sitting Pulse 70 Pulse Source Pulse Oximeter Temp 96.9 F Temperature Source Tympanic Pulse Oximetry 100 Oxygen Delivery Method Room Air Height 5 ft Weight 131 lb 3.2 oz BMI 25.6 Body Fat % 30.4 Body Fat Mass 40.0 Fat Free Mass 91.2 Visceral Fat Rating 5.0 Body Water % 49.7 Body Water Mass 65.2 Muscle Mass/Score 86.6 Basal Metabolic Rate/Score 1,253 Intake Visit Reasons: (OV) PO LSG 11/07/21 Senior [employer] Etl Developer Required: No Allergies No Known Allergies Allergy (Verified 05/25/23 13:12) Medication List - Last Reconciled 05/25/23 by MELITA May biotin 5 mg PO DAILY cholecalciferol (vitamin D3) 50 mcg PO DAILY docusate sodium (Colace) 100 mg PO DAILY mecobalamin (vitamin B12) 1,000 mcg PO DAILY multivitamin 1 tab PO DAILY ondansetron 4 mg PO Q8H PRN HPI HPI Comments History of Present Illness Details Patient is a very pleasant 42-year-old female who returns to the office today in follow-up. She is status post sleeve gastrectomy on 11/07/2021 and panniculectomy with brachioplasty on 12/29/2022. Weight today is 131.2 lb with a BMI of 25.6. Didn t like fairlife shake and switched to celebrate rebuild, also complains of some morning fatigue. She continues taking a multivitamin and B12 supplement. Meal plan: Celebrate rebuild 2 scoops in 8 oz water w strawberries or alessia shake, [id number]-930 am isopure shake 20 gm in 8 oz water x 2, 11 am-5 pm meal, 7 pm 7 forks of protein and 7 of vegetables 60 oz of water Exercise plan: elliptical at home 1 hour 3 x per week. 800 enid Any post op complications: None JAVI: Never DM: Never HTN: Never Hyperlipidemia: Resolved GERD:?0-5 scale ??0 = no symptoms ??1 = symptoms noticeable but not bothersome 2 =symptoms bothersome but not daily ? 3 = symptoms bothersome and daily 4 = symptoms affect daily activities 5 = symptoms are incapacitating, unable to do daily activities ? How bad is the heartburn: 0 ? Heartburn while lying down: 0 ? Heartburn when standing up: 0 ? Heartburn after meals: 0 ? Does heartburn change your diet: 0 ? Does heartburn wake you up from sleep: 0 ? Do you have difficulty swallowin ? Do you have pain with swallowin ? If you take medicine for your reflux, does this affect your daily life: 0 Satisfaction with present condition - satisfied or not satisfied: satisfied [facility] Medical History Postgastrectomy malabsorption Former tobacco use Gestational diabetes Diabetes Surgical History History of sleeve gastrectomy Hx of arthroscopic knee surgery Hx of tubal ligation Hx of hysterectomy Hx of hand surgery Family History Maternal Grandfather Colon cancer Brain tumor Diabetes Maternal Aunt Diabetes Social History Household Members Other:: 2 adult children, one minor child Are you a primary child care cook to a significant other at home: Yes (minor child) Do you presently have visiting nurse or other home services: No Alcohol intake: current Alcohol intake frequency: does not drink Patient Tobacco Use Status: Former Tobacco user Quit Date: 2019 Tobacco use type: Cigarette service: No Current occupational status: employed Physical Exam Const General: healthy appearing and no acute distress Resp Effort & Inspection: normal respiratory effort Auscultation: clear to auscultation bilaterally Cardio Rate: regular rate Rhythm: regular rhythm GI Auscultation: normal bowel sounds Extrem General: Yes normal to inspection Assessment & Plan Assessment & Plan (1) S/P laparoscopic sleeve gastrectomy: Code(s): Z98.84 - Bariatric surgery status Plan: Check 18 months labs. Assess for any vitamin deficiencies or anemia potentially associated with complaints of fatigue. Additionally we will recommend changing her meal plans slightly. Discussed the importance of communication by text if she needs to change her meal plan so we may advise her appropriately. Celebrate rebuild 2 scoops isopure shake 1 scoop in 16 oz water meal w 7 forks protein and 7 forks veg continue exercise plan rtc 4 weeks Orders: Orders Insulin Today K74.00 - Hepatic fibrosis, unspecified, R53.83 - Other fatigue, Z98.84 - Bariatric surgery status Vitamin B1 Today K74.00 - Hepatic fibrosis, unspecified, R53.83 - Other fatigue, Z98.84 - Bariatric surgery status TSH reflex Free T4 Today K74.00 - Hepatic fibrosis, unspecified, R53.83 - Other fatigue, Z98.84 - Bariatric surgery status Hemoglobin A1c Today K74.00 - Hepatic fibrosis, unspecified, R53.83 - Other fatigue, Z98.84 - Bariatric surgery status Complete Blood Count Auto Diff Today K74.00 - Hepatic fibrosis, unspecified, R53.83 - Other fatigue, Z98.84 - Bariatric surgery status Lipid Panel Today K74.00 - Hepatic fibrosis, unspecified, R53.83 - Other fatigue, Z98.84 - Bariatric surgery status IRON PROFILE Today K74.00 - Hepatic fibrosis, unspecified, R53.83 - Other fatigue, Z98.84 - Bariatric surgery status Vitamin B12 and Folate Today K74.00 - Hepatic fibrosis, unspecified, R53.83 - Other fatigue, Z98.84 - Bariatric surgery status Zinc Today K74.00 - Hepatic fibrosis, unspecified, R53.83 - Other fatigue, Z98.84 - Bariatric surgery status C Reactive Protein Today K74.00 - Hepatic fibrosis, unspecified, R53.83 - Other fatigue, Z98.84 - Bariatric surgery status Vitamin A Today K74.00 - Hepatic fibrosis, unspecified, R53.83 - Other fatigue, Z98.84 - Bariatric surgery status Ferritin Today K74.00 - Hepatic fibrosis, unspecified, R53.83 - Other fatigue, Z98.84 - Bariatric surgery status Vitamin D 25-OH Total Today K74.00 - Hepatic fibrosis, unspecified, R53.83 - Other fatigue, Z98.84 - Bariatric surgery status Basic Metabolic Panel Today K74.00 - Hepatic fibrosis, unspecified, R53.83 - Other fatigue, Z98.84 - Bariatric surgery status Coding Level of Care Code Est Pt Level 4 (03753) Diagnoses S/P laparoscopic sleeve gastrectomy Z98.84
[2023-05-25 13:10] VITALS: BP 112/55; PULSE 70; TEMP 36.1; O2SAT 100; BMI 25.6
== END 2023-05-25 13:29 | disposition home or self-care (01) ==
PROVIDERS: PCP Internal Medicine; Visit Provider Physician Assistant Surgical
DX: E66.3 Overweight (principal); Z68.25 Body mass index [BMI] 25.0-25.9, adult; Z90.3 Acquired absence of stomach [part of]; Z98.84 Bariatric surgery status
CPT/HCPCS: 99214

== ENCOUNTER → 2023-05-25 13:01 | Outpatient (BNVA) | payer OTHER, SELFPAY | PROVIDERS: PCP Internal Medicine; Visit Provider Physician Assistant Surgical | DX: Z98.84 Bariatric surgery status (principal); K74.00 Hepatic fibrosis, unspecified; R53.83 Other fatigue | CPT/HCPCS: 99212 ==

== ENCOUNTER 2023-05-26 09:14 | Outpatient (REF) | payer OTHER, SELFPAY ==
[2023-05-26 09:29] LABS: MANUAL DIFF FLAG NO
[2023-05-26 10:02] LABS: Basophils Absolute Auto 0.1 X10*3/uL (0.0-0.2); Basophils Percent Auto 0.9 % (0-2); Eosinophils Absolute Auto 0.1 X10*3/uL (0.0-0.4); Eosinophils Percent Auto 2.4 % (0-4); Hematocrit 36.6 % (37.0-47.0); Hemoglobin 12.3 g/dl (12.0-16.0); Imm Gran Abs Auto 0.01 X10*3/uL (0.00-0.03); Imm Gran Pct Auto 0.2 % (0.0-0.4); Lymphocytes Absolute Auto 2.4 X10*3/uL (1.2-4.9); Lymphocytes Percent Auto 41.5 % (20-40); Mean Corpuscular HGB Conc 33.6 g/dl (31.0-35.0); Mean Corpuscular Volume 92.2 fL (80.0-98.0); Mean Platelet Volume 10.1 fL (9.4-12.3); Monocytes Absolute Auto 0.3 X10*3/uL (0.1-1.2); Monocytes Percent Auto 4.3 % (2-11); Neutrophils Absolute Auto 2.9 x10*3/uL (2.0-8.3); Neutrophils Percent Auto 50.7 % (45-73); Platelet Count 243 X10*3/uL (160-400); Red Blood Count 3.97 X10*6/uL (4.20-5.50); Red Cell Distribution Width 12.3 % (11.0-16.0); White Blood Count 5.8 X10*3/uL (4.8-10.8)
[2023-05-26 10:47] LABS: Estimated Average Glucose 97 mg/dL
[2023-05-26 11:22] LABS: Ferritin 63 ng/mL (10-250); Insulin 7 uU/mL (2-29)
[2023-05-26 11:24] LABS: Anion Gap 10 (12-20); Blood Urea Nitrogen 18 mg/dL (9-16); C Reactive Protein < 0.04 mg/dL (< or = 0.50); Calcium 8.8 mg/dL (8.4-10.2); Carbon Dioxide 24 mmol/L (22-29); Chloride 109 mmol/L (96-108); Cholesterol 192 mg/dL (<200); Estimated Glomerular Filt Rate > 60; Glucose Random 90 mg/dL (60-115); HDL Cholesterol 73 mg/dL (>40); Iron 73 mcg/dL (30-160); LDL Cholesterol Calculated 110 mg/dL (<100); Percent Iron Saturation 27 % (15-50); Potassium 4.1 mmol/L (3.3-5.1); Sodium 139 mmol/L (135-145); Total Iron Binding Capacity 268 mcg/dL (228-428); Triglycerides 48 mg/dL (<150); Unsaturated Iron Binding 195 ug/dL
[2023-05-26 12:07] LABS: Folate 10.4 ng/mL (> or = 4.0); Vitamin B12 872 pg/mL (200-900)
[2023-05-29 06:13] LABS: Zinc 79 mcg/dL (60-130)
[2023-06-01 04:33] LABS: Vitamin A 49 mcg/dL (38-98)
[2023-06-01 16:04] LABS: Vitamin B1 9 nmol/L (8-30)
== END 2023-05-26 09:15 | disposition home or self-care (01) ==
LOC: HO.LAB 09:14
PROVIDERS: PCP Internal Medicine; Visit Provider Physician Assistant Surgical
DX: K74.00 Hepatic fibrosis, unspecified (principal); R53.83 Other fatigue; Z98.84 Bariatric surgery status
CPT/HCPCS: 36415; 80048; 80061; 82306; 82607; 82728; 82746; 83036; 83525; 83540; 84425; 84443; 84590; 84630; 85025; 86140

== ENCOUNTER 2023-06-29 13:33 | Outpatient (AMB) | payer OTHER, SELFPAY ==
--- NOTE | 2023-06-29 13:36 | A.OFFVIS_ITS ---
VS Expanded 06/29/23 13:45 BP 114/58 L Blood Pressure Location Rt brachial Blood Pressure Position Sitting Pulse 62 Pulse Source Pulse Oximeter Temp 97.9 F Temperature Source Temporal Artery Scan Pulse Oximetry 100 Oxygen Delivery Method Room Air Height 5 ft Weight 127 lb BMI 24.8 Body Fat % 28.6 Body Fat Mass 36.4 Fat Free Mass 90.6 Visceral Fat Rating 4.0 Body Water % 51.0 Body Water Mass 64.8 Muscle Mass/Score 86.0 Basal Metabolic Rate/Score 1,239 Intake Visit Reasons: (OV) PO LSG 11/07/21 White Sugar Supervisor Required: No Allergies No Known Allergies Allergy (Verified 06/29/23 13:46) Medication List - Last Reconciled 06/29/23 by MELITA May biotin 5 mg PO DAILY cholecalciferol (vitamin D3) 125 mcg PO DAILY 90 days docusate sodium (Colace) 100 mg PO DAILY mecobalamin (vitamin B12) 1,000 mcg PO DAILY multivitamin 1 tab PO DAILY ondansetron 4 mg PO Q8H PRN HPI Comments Details: Patient is a very pleasant 42-year-old female who returns to the office today in follow-up. She is status post sleeve gastrectomy on 11/07/2021 and panniculectomy with brachioplasty on 12/29/2022. Weight today is 127 lb with a BMI of 24.8. Review of labs revealed low vitamin-D which has been supplemented. She continues taking a multivitamin and B12 supplement. She states that she has been having left-sided headaches described as a pain on the left side occurring for 2 or 3 days in a row and then resolution for a week or 2, only to reoccur. She is scheduled to follow-up with her primary care physician next week. Discussed that this may be related to cluster headaches and she will discuss this with her primary care physician. She states that she is satisfied with the meal plan and does not wish to change it as it works very well for her busy schedule, working 6 days a week for [employer] Meal plan: Celebrate rebuild 2 scoops, 16 oz water isopure shake 1 scoop in 16 oz water meal w 7 forks protein and 7 forks veg 32 oz of water Exercise plan: elliptical at home 1 hour 1 x per week. 100 [address] [facility] Medical History Postgastrectomy malabsorption Former tobacco use Gestational diabetes Diabetes Surgical History History of sleeve gastrectomy Hx of arthroscopic knee surgery Hx of tubal ligation Hx of hysterectomy Hx of hand surgery Family History Maternal Grandfather Colon cancer Brain tumor Diabetes Maternal Aunt Diabetes Social History Household Members Other:: 2 adult children, one minor child Are you a primary career services assistant to a significant other at home: Yes (minor child) Do you presently have visiting nurse or other home services: No Alcohol intake: current Alcohol intake frequency: does not drink Patient Tobacco Use Status: Former Tobacco user Quit Date: 2019 Tobacco use type: Cigarette service: No Current occupational status: employed Physical Exam Const General: healthy appearing and no acute distress Resp Effort & Inspection: normal respiratory effort Auscultation: clear to auscultation bilaterally Cardio Rate: regular rate Rhythm: regular rhythm GI Auscultation: normal bowel sounds Extrem General: Yes normal to inspection Assessment & Plan Assessment & Plan (1) S/P laparoscopic sleeve gastrectomy: Code(s): Z98.84 - Bariatric surgery status Category: Surgical Plan: Overall, patient has achieved a healthy weight. She is satisfied with her meal plan which we will continue. She is satisfied with the results of her skin removal surgery. We will have her return to the office for follow-up in November with the understanding that she will call the office sooner with any questions concerns. She will text me with any issues. (2) Headache: Code(s): R51.9 - Headache, unspecified Category: Medical Plan: Unclear etiology, may be cluster headache related. Recommend patient follow-up with Neurology. She will start with her primary care physician whom she has an appointment with next week.
[2023-06-29 13:45] VITALS: BP 114/58; PULSE 62; TEMP 36.6; O2SAT 100; BMI 24.8
== END 2023-06-29 13:57 | disposition home or self-care (01) ==
LOC: HO.HBS 13:33
PROVIDERS: PCP Internal Medicine; Visit Provider Physician Assistant Surgical
DX: R51.9 Headache, unspecified (principal); Z90.3 Acquired absence of stomach [part of]; Z98.84 Bariatric surgery status
CPT/HCPCS: 99213

== ENCOUNTER → 2023-06-29 13:33 | Outpatient (BNVA) | payer OTHER, SELFPAY | PROVIDERS: PCP Internal Medicine; Visit Provider Physician Assistant Surgical | DX: R51.9 Headache, unspecified (principal); K91.2 Postsurgical malabsorption, not elsewhere classified; E66.9 Obesity, unspecified; Z68.24 Body mass index [BMI] 24.0-24.9, adult; Z90.3 Acquired absence of stomach [part of] | CPT/HCPCS: 99212 ==

== ENCOUNTER 2024-02-10 14:30 | Outpatient (AMB) | payer OTHER, SELFPAY ==
--- NOTE | 2024-02-10 14:33 | A.OFFVIS_ITS ---
VS Expanded 02/10/24 14:34 Height 5 ft Weight 138 lb BMI 26.9 Intake Visit Reasons: (tv) PO LSG 11/07/21 Allergies No Known Allergies Allergy (Verified 06/29/23 13:46) HPI Comments Details: Patient is a very pleasant 43-year-old female who returns to the office today in follow-up. She is status post sleeve gastrectomy on 11/07/2021 and panniculectomy with brachioplasty on 12/29/2022. Weight today is 138 lb with a BMI of 27. She has had increase in weight since vacation although back 2 months. Just started meal plan last week. Review of labs revealed low vitamin-D which has been supplemented. She continues taking a multivitamin and B12 supplement. Meal plan: 2 Celebrate rebuild 2 scoops, 16 oz water meal w 6 forks protein and 6 forks veg 32 oz of water Exercise plan: gym, PF 1 x per week PFSH Medical History Postgastrectomy malabsorption Former tobacco use Gestational diabetes Diabetes Surgical History History of sleeve gastrectomy Hx of arthroscopic knee surgery Hx of tubal ligation Hx of hysterectomy Hx of hand surgery Family History Maternal Grandfather Colon cancer Brain tumor Diabetes Maternal Aunt Diabetes Social History Household Members Other:: 2 adult children, one minor child Are you a primary resident care aide to a significant other at home: Yes (minor child) Do you presently have visiting nurse or other home services: No Alcohol intake: current Alcohol intake frequency: does not drink Patient Tobacco Use Status: Former Tobacco user Tobacco use type: Cigarette service: No Current occupational status: employed Telehealth Telehealth Telehealth Platform: Telephone Location of provider rendering services: practice address Location of patient: address on file Patient Identification confirmed using: Name, : Yes Telehealth method: voice only Patient verbally consented to treatment: Yes Patient verbally consented to billing insurance company: Yes Patient informed of any privacy concerns related to visit: Yes Minutes spent on Phone/Video with Pt.: 15 Assessment & Plan Assessment & Plan (1) Overweight: Code(s): E66.3 - Overweight Category: Medical Plan: Patient was on vacation 2 months ago. She has not resumed her meal plan until 2 weeks ago. She can only go to the gym once per week as she is currently working 3 jobs but she is looking to try to incorporate more days at the gym, possibly going in the evenings. Additionally, she will resume her meal plan as listed above. Return to clinic as scheduled. Encouraged to send weight is weekly and if any questions or concerns
[2024-02-10 14:34] VITALS: BMI 26.9
== END 2024-02-10 14:45 | disposition home or self-care (01) ==
LOC: HO.HBS 14:41
PROVIDERS: PCP Internal Medicine; Visit Provider Physician Assistant Surgical
DX: E66.3 Overweight (principal); Z68.26 Body mass index [BMI] 26.0-26.9, adult; Z90.3 Acquired absence of stomach [part of]; Z98.84 Bariatric surgery status
CPT/HCPCS: 99213; G2211